=== PATIENT | female | born 1990 | race Caucasian/White ===

== ENCOUNTER → 2018-05-23 | Outpatient (CLI) | payer BC ==
[~2018-05-23] MED LIST: BCPILLS PO
== END | disposition home or self-care (01) ==
LOC: C.LAB 10:23
PROVIDERS: ATTEND Family Medicine
DX: R07.9 Chest pain, unspecified (principal)

== ENCOUNTER 2019-02-06 18:57 | Inpatient (IN) ==
[2019-02-06] MEDS ORDERED: OXYTOCIN 30 UNITS/500 ML BAG IV PRN (20:00)
[2019-02-06] MEDS ORDERED: LACTATED RINGER'S 1,000 ML IV PRN (20:00)
[2019-02-06 21:24] LABS: Hematocrit (blood only) 39.8 % (37-47); Mean Corpuscular Volume 86.3 fL (80-100); Mean Platelet Volume 12.5 fL (7.4-10.4); Platelet Count 155 K/uL (130-400); RDW Coefficient of Variation 13.7 % (11.5-14.5); RDW Standard Deviation 42.6 fL (36.4-46.3); Red Blood Count 4.61 M/uL (4.2-5.4); White Blood Count 15.22 K/uL (4.8-10.8)
[2019-02-06 21:39] LABS: Mean Corpuscular Hgb Conc 35.2 g/dL (32-36)
[2019-02-07] MEDS: LACTATED RINGER'S 1,000 ML IV SCH ×2 (02:44→03:51)
[2019-02-07] MEDS ORDERED: BISACODYL 10 MG SUPP PR PRN (05:46)
[2019-02-07] MEDS ORDERED: BENZOCAINE 20% AER SPR 82.5 GM CAN EXT PRN (05:46)
[2019-02-07] MEDS ORDERED: OXYTOCIN 30 UNITS/500 ML BAG IV PRN (05:46)
[2019-02-07] MEDS ORDERED: ACETAMINOPHEN 325 MG TAB PO PRN (05:46)
[2019-02-07] MEDS ORDERED: SUPERCREAM 0.870% 15 GM JAR EXT PRN (05:46)
[2019-02-07] MEDS ORDERED: HYDROCORTISONE ACETATE 25 MG SUPP PR PRN (05:46)
[2019-02-07] MEDS ORDERED: ACETAMINOPHEN W/CODEINE #3 1 TAB PO PRN (05:46)
[2019-02-07] MEDS ORDERED: DIPHTHERIA/TETANUS/PERTUSSIS 0.5 ML SYR/VIAL IM ONE (05:46)
[2019-02-07] MEDS ORDERED: OXYCODONE/ACETAMINOPHEN 5mg/325mg TAB PO PRN (05:46)
[2019-02-07] MEDS: IBUPROFEN 600 MG TAB PO PRN ×3 (06:01→18:52)
--- NOTE | 2019-02-07 07:29 | Delivery Summary ---
DATE OF OPERATION: 02/07/2019 DELIVERY NOTE The patient is 1, para 1. Blood type is B negative, group B strep negative, EDC 02/05/2019, was admitted in active labor. On admission, she was about 4+ cm dilated. She had an unstimulated unmedicated labor. She went to full dilatation. It took her about a little over 2 hours to push out a live male via direct occiput anterior position over an intact perineum. Infant was suctioned through the mouth and the nose. Shoulders were delivered without difficulty. Terminal meconium was noted. Cord was clamped, cut, and then he was taken over to be given some mask oxygen. With IV Pitocin running, the placenta was removed intact, it had meconium staining, was sent for exam. Inspection of the perineum revealed a second-degree laceration. The perineal area was infiltrated with local. I used a heavy Vicryl to approximate the vaginal mucosa out and to beyond the hymenal ring. I then used a deep suture of heavy Vicryl to approximate the bulbocavernosus muscle, another deep suture to bolster the rectal sphincter capsule, 2 sutures to approximate the perineal body, and then I did a running subcuticular suture to approximate the perineal skin edges. Following this, vag exam including rectovaginal examination revealed no hematoma formation or sponges in the vagina. Estimated blood loss was 200 mL. Estimated Apgars were 3 and 8 respectively. MTDD
[2019-02-07] MEDS: DOCUSATE SODIUM 100 MG CAP PO SCH ×2 (08:21→21:12)
[2019-02-07] MEDS: PRENATAL VITAMIN 1 TAB PO SCH (08:21)
[2019-02-07] MEDS: FERROUS SULFATE 325 MG TAB PO SCH (08:21)
[2019-02-08] MEDS: IBUPROFEN 600 MG TAB PO PRN ×3 (04:48→20:56)
[2019-02-08 06:28] LABS: Hematocrit (blood only) 31.3 % (37-47); Hemoglobin 10.6 g/dL (12.0-16.0); Mean Corpuscular Hgb Conc 33.9 g/dL (32-36); Mean Corpuscular Volume 88.7 fL (80-100); Mean Platelet Volume 11.5 fL (7.4-10.4); Platelet Count 111 K/uL (130-400); RDW Coefficient of Variation 14.1 % (11.5-14.5); RDW Standard Deviation 46.2 fL (36.4-46.3); Red Blood Count 3.53 M/uL (4.2-5.4); White Blood Count 11.77 K/uL (4.8-10.8)
--- NOTE | 2019-02-08 07:48 | Obstetrical Progress Note ---
Date of Service February 08, 2019 Assessment & Plan (1) normal course: PPD #1 pt doing well anticipate disch tomorrow Subjective Ambulation: ambulating normally Voiding: no voiding problems Passing Gas:: Yes Diet Tolerance:: regular diet Lochia:: Small Feeding Type:: breast feeding Review of Systems All systems reviewed & are unremarkable except as noted in HPI & below Physical Exam Vital Signs (Past 24 Hours) Last Vital Signs Temp 36.4 C L 02/08/19 04:30 Pulse 90 02/08/19 04:30 Resp 16 02/08/19 04:30 BP 124/87 02/08/19 04:30 Pulse Ox 99 02/08/19 04:30 Constitutional WD/WN, vitals as above well developed and well nourished Eyes PERRL, conjunctivae normal, anicteric sclerae Neck trachea midline, no thyromegaly Respiratory normal respiratory effort, lungs clear to auscultation Auscultation: no crackles, no rales and no wheezes Cardiovascular RRR, no murmur, no edema Gastrointestinal (Abdomen) normal bowel sounds, soft, nontender, no hepatosplenomegaly Uterus is below umbilicus Musculoskeletal no cyanosis or clubbing, extremities motor strength 5/5 Skin no rashes, warm and dry Neurologic patellar DTR's 2+ bilat, sensation intact Psychiatric A+Ox3, euthymic affect Genitourinary normal external appearance
[2019-02-08] MEDS: DOCUSATE SODIUM 100 MG CAP PO SCH ×2 (08:35→20:56)
[2019-02-08] MEDS: FERROUS SULFATE 325 MG TAB PO SCH (08:36)
[2019-02-08] MEDS: PRENATAL VITAMIN 1 TAB PO SCH (08:36)
[2019-02-08] MEDS ORDERED: BISACODYL 5 MG TABEC PO SCH (20:00)
[2019-02-09 07:06] LABS: Hematocrit (blood only) 30.5 % (37-47); Hemoglobin 10.5 g/dL (12.0-16.0)
--- NOTE | 2019-02-09 09:22 | Obstetrical Progress Note ---
Date of Service February 09, 2019 Assessment & Plan (1) normal course: pt doing well 'no complaints disch home with instructions Subjective Ambulation: ambulating normally Voiding: no voiding problems Passing Gas:: Yes Diet Tolerance:: regular diet Lochia:: Small Feeding Type:: breast feeding Review of Systems All systems reviewed & are unremarkable except as noted in HPI & below Physical Exam Vital Signs (Past 24 Hours) Last Vital Signs Temp 36.8 C 02/09/19 00:25 Pulse 76 02/09/19 00:25 Resp 18 02/09/19 00:25 BP 112/72 02/09/19 00:25 Pulse Ox 97 02/09/19 00:25 Constitutional WD/WN, vitals as above well developed and well nourished Eyes PERRL, conjunctivae normal, anicteric sclerae Neck trachea midline, no thyromegaly Respiratory normal respiratory effort, lungs clear to auscultation Auscultation: no crackles, no rales and no wheezes Cardiovascular RRR, no murmur, no edema Gastrointestinal (Abdomen) normal bowel sounds, soft, nontender, no hepatosplenomegaly Uterus is below umbilicus Musculoskeletal no cyanosis or clubbing, extremities motor strength 5/5 Skin no rashes, warm and dry Neurologic patellar DTR's 2+ bilat, sensation intact Psychiatric A+Ox3, euthymic affect Genitourinary normal external appearance
== END 2019-02-09 13:20 | disposition home or self-care (01) | DRG 807 ==
LOC: OPB 18:57 → 4S1 18:58 → 4S2 02-07 09:55

== ENCOUNTER 2022-10-08 07:18 | Inpatient (IN) ==
[2022-10-08] MEDS ORDERED: LACTATED RINGER'S 1,000 ML IV PRN (07:30)
[2022-10-08] MEDS ORDERED: LIDOCAINE 1% LOCAL 20 ML VIAL INFIL PRN (07:30)
--- NOTE | 2022-10-08 07:42 | History & Physical Report ---
Date of Service October 08, 2022 Assessment & Plan (1) Active labor at term: Plan: 32-year-old -0-0-1 at 40 weeks and 2 days of gestation presenting with regular contractions, SROM, active labor, Vital signs stable afebrile, No medical problems, heart rate reassuring, GBS negative, Plans unmedicated labor with her [employer] L[employer], declines epidural for pain, Plan to admit, monitor, labs, IV fluids, All questions were answered. (2) Spontaneous rupture of amniotic membranes: Admission and Anticipated Discharge Date Admission Date: October 08, 2022 History of Present Illness Primary Care Provider: Alida Carrasco DO Patient is a 32-year-old -0-0-1 at 40 weeks and 3 days of gestation who woke up this morning with contractions around 3:30 AM they have been getting regular and more painful. She SROM on the way here at 7:10 AM and have been having contractions every 2 minutes. She has a [employer] L[employer]arian coming and and plans to have unmedicated labor, declines epidural. She denies vaginal bleeding. She reports good movements. Her has been uncomplicated, GBS negative, Denies any medical problems. Allergies Allergy/AdvReac Type Severity Reaction Status Date / Time benzoyl peroxide Allergy Severe RASH Verified 02/07/19 00:17 Home Medications Medication Instructions Recorded Confirmed Type vits no.124-ferrous fum 1 tab PO DAILY 02/06/19 02/06/19 History 27 mg iron-folic acid 800 mcg tablet ( Vitamin) docusate sodium 100 mg capsule 100 mg PO BID #60 caps 02/09/19 Rx ferrous sulfate 325 mg (65 mg 325 mg PO QAM #30 tabs 02/09/19 Rx iron) tablet,delayed release ibuprofen 600 mg tablet 600 mg PO Q4H #30 tabs 02/09/19 Rx Patient History Medical History Elbow fracture, left Kidney stone Surgical History Hx of LASIK [place] teeth removed Social History Smoking Status: Never smoker Second Hand Exposure: No; Hx Alcohol Use: No Hx Substance Use: No Preferred Language: Qatari Communication Ability: Effective Visual Impairment: No Limitations Hearing Ability: Normal Plumbing Contractor Required: No Beliefs That Will Affect Care: None marital status: Current Living Situation: Spouse current occupational status: employed 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 Review of Systems as per Subjective / HPI Physical Exam Constitutional: WD/WN, vitals as above Gastrointestinal (Abdomen): normal bowel sounds, soft, nontender, no hepatosplenomegaly (Gravid) Genitourinary: normal external appearance OB Exam Abdomen: + vertex Manual OB Exam: + cervical dilation 4 cm, + cervical effacement 70% and + station -2 OB Exam Monitor Tracing: + external uterine monitor used and + category I Results & Data ([facility]) Vital Signs (Past 12 Hours) Vital Signs Pulse BP 10/08/22 07:29 95 H 110/74
[2022-10-08 07:58] LABS: Hematocrit (blood only) 39.2 % (34.1-44.9); Mean Corpuscular Hemoglobin 30.5 pg (25.0-34.0); Mean Corpuscular Hgb Conc 35.7 g/dL (32.0-36.0); Mean Corpuscular Volume 85.4 fL (80.0-100.0); Mean Platelet Volume 11.1 fL (9.4-12.3); Platelet Count 173 K/uL (130-400); RDW Coefficient of Variation 13.6 % (11.5-14.5); RDW Standard Deviation 42.2 fL (36.4-46.3); Red Blood Count 4.59 M/uL (3.93-5.22); White Blood Count 13.24 K/ul (4.8-10.8)
--- NOTE | 2022-10-08 08:48 | Obstetrical Progress Note ---
Date of Service October 08, 2022 Assessment & Plan Admission and Anticipated Discharge Date Admission Date: October 08, 2022 Subjective Patient wanted to take shower to help with pain Back to bed, has difficulty with lying down, wants to sit up FHR 130's with good variability, unable to monitor FHR continuously due to maternal discomfort VE; 7/ 80%/-1 Ctxs q 1-2 min Continue to monitor closely Results & Data ([facility]) Vital Signs (Past 12 Hours) Vital Signs Temp Pulse Resp BP Pulse Ox 10/08/22 08:44 100 H 98 10/08/22 07:53 22 10/08/22 07:53 22 10/08/22 07:29 95 H 110/74 10/08/22 07:34 36.5 C 18
[2022-10-08] MEDS ORDERED: ceFAZolin 2000MG 2,000 MG/15 ML SYR IV STA (09:12)
[2022-10-08] MEDS: OXYTOCIN 30 UNITS/500 ML BAG IV PRN ×2 (09:18→10:16)
[2022-10-08] MEDS ORDERED: DIPHTHERIA/TETANUS/PERTUSSIS 0.5 ML SYR/VIAL IM ONE (09:42)
[2022-10-08] MEDS ORDERED: ACETAMINOPHEN 325 MG TAB PO PRN (09:42)
[2022-10-08] MEDS ORDERED: HYDROCORTISONE ACETATE 25 MG SUPP PR PRN (09:42)
[2022-10-08] MEDS ORDERED: MEASLES, MUMPS & RUBELLA VIRUS VIAL SQ ONE (09:42)
[2022-10-08] MEDS ORDERED: bisacodyL 10 MG SUPP PR PRN (09:42)
[2022-10-08] MEDS ORDERED: oxyCODONE/ACETAMINOPHEN 5mg/325mg TAB PO PRN (09:42)
[2022-10-08] MEDS ORDERED: OXYTOCIN 30 UNITS/500 ML BAG IV PRN (09:42)
[2022-10-08] MEDS ORDERED: BENZOCAINE 20% AER SPR 82.5 GM CAN EXT PRN (09:42)
--- NOTE | 2022-10-08 10:10 | Delivery Summary ---
Vaginal Delivery Summary Date of Service October 08, 2022 Vaginal Delivery Summary Patient labored by herself and did not get anything for pain per her choice. She was getting very painful and and feeling pressure. Her cervix was checked to be 9 cm and head was at +1 station. heart rate had decelerations and we were unable to monitor the baby continues to do to patient discomfort and unable to stay in 1 position. Patient wanted to push and with 1 push cervix became 10 cm and had came down to +2. She push through few contractions and brought down the head to +3 station. heart rate had decelerations. Head was at LOP position with a partial internal rotation. I emptied the bladder with straight cath and then applied a Kiwi vacuum at the vertex 1 cm front of posterior fontanelle. With the patient pushing and Kiwii vacuum was pulled once and head was at that point. Then the head was delivered with next push. Anterior/left shoulder was found to be stuck behind pubic bone indicating shoulder dystocia. The team was notified and the bed was lowered down. With Cindy maneuver and suprapubic pushing applied by Dr. Elkins, I was able to deliver right/posterior shoulder and arm without difficulty. Then the anterior shoulder was delivered with minimal traction. Baby was handed to the mother where the cord was clamped x2 and cut and baby was handed to the waiting pediatric team with Dr. Matos. The time between the delivery of the head and the whole body was less than a minute. Then the vagina and perineum were checked for lacerations. There was a second- degree midline perineal laceration. Rectal exam was done and confirmed to have good sphincter tone. Perineal muscles around the sphincter were held with Allis clamps and repaired with 2-0 Vicryl with [id number] stitches x2 to support external sphincter of anus. Good sphincter tone was noted and no sutures were felt. The gloves were changed and rest of the perineal body muscles were approximated with 2-0 Vicryl with running sutures. Then the vagina mucosa and skin were c losed with 2-0 Vicryl in a running and subcuticular sutures. Excellent hemostasis achieved. The placenta was found to be in the vagina, delivered spontaneously as intact and complete. Uterus was explored and upper segment was contracted and firm and the lower segment was cleared of all clots and debris's. EBL was 300 mL. Mom and baby tolerated procedure well. The sponge needle instrument count was correct x2. The baby was a viable male , apgars 8/9 and weight is pending. No complications happened other than moderate shoulder dystocia. I was present during whole procedure.
[2022-10-08] MEDS: IBUPROFEN 600 MG TAB PO PRN ×3 (10:16→20:38)
[2022-10-08] MEDS: DOCUSATE SODIUM 100 MG CAP PO SCH (20:33)
[2022-10-09] MEDS: IBUPROFEN 600 MG TAB PO PRN ×2 (03:39→08:25)
--- NOTE | 2022-10-09 07:06 | Obstetrical Progress Note ---
Date of Service October 09, 2022 Assessment & Plan (1) Normal course: PPD #1 Pt doing well d/c home tomorrow cbc pending Results & Data ([facility]) Vital Signs (Past 12 Hours) Vital Signs Temp Pulse Resp BP Pulse Ox O2 Del Method 10/09/22 02:59 36.6 C 83 18 105/68 98 Room Air 10/08/22 23:06 36.4 C L 75 18 100/63 97 Room Air 10/08/22 20:00 36.6 C 82 16 99/60 L 98 Room Air
--- NOTE | 2022-10-09 07:07 | Obstetrical Progress Note ---
Date of Service October 09, 2022 Assessment & Plan (1) Normal course: PPD #1 pt doing well No complaints d/c home tomorrow Subjective Ambulation: ambulating normally Voiding: no voiding problems Passing Gas:: Yes Diet Tolerance:: regular diet Lochia:: Small Feeding Type:: breast feeding Review of Systems All systems reviewed & are unremarkable except as noted in HPI & below Physical Exam Constitutional WD/WN, vitals as above well developed and well nourished Eyes PERRL, conjunctivae normal, anicteric sclerae Neck trachea midline, no thyromegaly Respiratory normal respiratory effort, lungs clear to auscultation Auscultation: no crackles, no rales and no wheezes Cardiovascular RRR, no murmur, no edema Gastrointestinal (Abdomen) normal bowel sounds, soft, nontender, no hepatosplenomegaly Uterus is below umbilicus Musculoskeletal no cyanosis or clubbing, extremities motor strength 5/5 Skin no rashes, warm and dry Neurologic patellar DTR's 2+ bilat, sensation intact Psychiatric A+Ox3, euthymic affect Genitourinary normal external appearance Results & Data ([facility]) Vital Signs (Past 12 Hours) Vital Signs Temp Pulse Resp BP Pulse Ox O2 Del Method 10/09/22 02:59 36.6 C 83 18 105/68 98 Room Air 10/08/22 23:06 36.4 C L 75 18 100/63 97 Room Air 10/08/22 20:00 36.6 C 82 16 99/60 L 98 Room Air
[2022-10-09] MEDS ORDERED: PRENATAL VITAMIN 1 TAB PO SCH (08:00)
[2022-10-09] MEDS ORDERED: FERROUS SULFATE 325 MG TAB PO SCH (08:00)
[2022-10-09] MEDS: DOCUSATE SODIUM 100 MG CAP PO SCH (08:25)
[2022-10-09 08:34] LABS: Hemoglobin 11.3 g/dl (12.0-16.0); Mean Corpuscular Hemoglobin 30.9 pg (25.0-34.0); Mean Corpuscular Hgb Conc 34.2 g/dL (32.0-36.0); Mean Corpuscular Volume 90.2 fL (80.0-100.0); Mean Platelet Volume 11.3 fL (9.4-12.3); Platelet Count 141 K/uL (130-400); RDW Coefficient of Variation 13.9 % (11.5-14.5); RDW Standard Deviation 45.5 fL (36.4-46.3); Red Blood Count 3.66 M/uL (3.93-5.22); White Blood Count 9.68 K/ul (4.8-10.8)
[2022-10-09] MEDS ORDERED: bisacodyL 5 MG TABEC PO SCH (20:00)
== END 2022-10-09 14:25 | disposition home or self-care (01) | DRG 807 ==
LOC: OPB 07:18 → 4S1 07:19 → 4E2 13:00

== ENCOUNTER 2024-07-08 18:48 | Inpatient (IN) ==
[2024-07-08] MEDS: LACTATED RINGER'S 1,000 ML IV SCH (20:00)
[2024-07-08] MEDS: ACETAMINOPHEN 500 MG TAB PO SCH (20:15)
[2024-07-08 20:24] LABS: Hematocrit (blood only) 37.7 % (37.0-47.0); Mean Corpuscular Hgb Conc 34.5 g/dL (32.0-36.0); Mean Corpuscular Volume 87.1 fL (80.0-100.0); Mean Platelet Volume 11.9 fL (9.4-12.4); Platelet Count 137 K/uL (130-400); RDW Coefficient of Variation 13.4 % (11.5-14.5); RDW Standard Deviation 41.9 fL (36.4-46.3); Red Blood Count 4.33 M/uL (4.20-5.40); White Blood Count 11.07 K/ul (4.8-10.8)
[2024-07-08] MEDS: CITRIC ACID/SODIUM CITRATE 15 ML UDC PO SCH (20:27)
[2024-07-08] MEDS: AZITHROMYCIN 500 MG in DEXTROSE 5% 250 ML IV SCH (20:27)
--- NOTE | 2024-07-08 20:31 | History & Physical Report ---
Date of Service July 08, 2024 Assessment & Plan (1) Transverse lie: Plan: patient is a 34-year-old -0-0-2 at 38 weeks and 4 days of gestation presented today in active labor with contractions, history of shoulder dystocia plan to her primary for next week, found to be transferred live with footh on presenting part, vital signs stable afebrile, heart rate reassuring, Plan to admit, monitor, labs, prepare for primary , patient understand the risks and benefits and signed an informed consent. All questions were answered. (2) History of shoulder dystocia in prior : Admission and Anticipated Discharge Date Admission Date: July 08, 2024 History of Present Illness Primary Care Provider: Leopoldo Johnson MD Patient is a 34-year-old -0-0-2 at 38 weeks and 4 days of gestation who has been feeling contractions since this afternoon. They got more closer and painful after 6 PM. She has been feeling them every 6 to send 7 minutes and pain is 7-8 out of 10. she denies leakage of fluid or vaginal bleeding. She reports good movements. She was originally scheduled for primary on July 15 for history of her shoulder dysplasia in 2021. I delivered her baby with Cindy maneuver, Suprep blood pressure and delivery of posterior arm within a minute with no complications. Baby has been doing well. After discussion in the office she decided to schedule primary to prevent another shoulder dystocia. vaginal exam reveals presenting part is most likely a foot. bedside ultrasound confirmed transverse lie with head on the right side, face down, back up and extremities in the pelvis. she is in active labor and is 5 cm dilated.. Patient understand the findings and risks and benefits and signed informed consent for a . Orders were placed to proceed with primary . her has been otherwise uncomplicated. She denies any medical problems nor surgeries. She does not take any medications other than vitamins. Allergies Allergy/AdvReac Type Severity Reaction Status Date / Time benzoyl peroxide Allergy Severe RASH Verified 07/03/24 15:31 Home Medications Medication Instructions Recorded Confirmed Type vits no.124-ferrous fum 1 tab PO QAM 02/06/19 07/03/24 History 27 mg iron-folic acid 800 mcg tablet ( Vitamin) Patient History Medical History Thyroid nodule "Found by OB 2023 - followed up with my PCP - Yearly monitoring with ultrasound" Kidney stone hx - no surgical intervention Elbow fracture, left no surgery - childhood Surgical History Hx of LASIK [place] teeth removed Social History Smoking Status: Never smoker Second Hand Exposure: No; Do You Dip or Chew Tobacco: No; Hx Alcohol Use: No Hx Substance Use: No Preferred Language: Marshallese Communication Ability: Effective Visual Impairment: No Limitations Hearing Ability: Normal Drug Department Worker Required: No Beliefs That Will Affect Care: None marital status: Current Living Situation: Spouse and Family current occupational status: employed 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 Other Information That Helps Us Care for You: No Feels Safe at Home: Yes Safety Concerns: Feels Safe At This Time Seatbelt Use: always Assistive Devices: None Review of Systems All systems reviewed & are unremarkable except as noted in HPI & below and All systems reviewed & are unremarkable except as noted in Subjective as per Subjective / HPI Physical Exam Constitutional: WD/WN, vitals as above well developed, well nourished and + acute distress ( with contractions only, comfortable and smiling between contra ctions) Gastrointestinal (Abdomen): normal bowel sounds, soft, nontender, no hepatosplenomegaly ( gravid) Genitourinary: normal external appearance OB Exam Abdomen: + transverse Manual OB Exam: + cervical dilation 5 cm, + cervical effacement 50% and + station high ( footh) OB Exam Monitor Tracing: + external uterine monitor used and + category I Results & Data Vital Signs (Past 12 Hours) Vital Signs Temp Pulse Resp BP 07/08/24 19:21 102 H 118/79 07/08/24 19:04 36.9 C 18 07/08/24 19:00 102 H 141/92 H (1) Transverse lie Fetus number: single or unspecified fetus Qualified Code(s): O32.2XX0 - Maternal care for transverse and oblique lie, not applicable or unspecified
[2024-07-08] MEDS ORDERED: diphenhydrAMINE 50 MG/ML VIAL IV PRN (20:37)
[2024-07-08] MEDS ORDERED: NALOXONE HCL 0.08 MG in SYRINGE 1.8 ML IV PRN (20:37)
[2024-07-08] MEDS ORDERED: ePHEDrine sulfate 50 MG/ML AMP IV PRN (20:37)
[2024-07-08] MEDS ORDERED: NALBUPHINE HCL INJ 10 MG/ML AMP IV PRN (20:37)
[2024-07-08] MEDS ORDERED: MEPERIDINE HCL 25 MG/ML CARP/VIAL IV PRN (20:37)
[2024-07-08] MEDS ORDERED: HYDROmorphone INJ 0.5 MG/0.5 ML SYR IV PRN (20:37)
[2024-07-08] MEDS ORDERED: LACTATED RINGER'S 500 ML IV PRN (20:37)
[2024-07-08] MEDS ORDERED: NALOXONE HCL 1 MG in SODIUM CHLORIDE 0.9% 1,000 ML IV PRN (20:37)
[2024-07-08] MEDS ORDERED: NALOXONE HCL 0.4 MG/1 ML VIAL/CARP IV PRN (20:37)
[2024-07-08] MEDS ORDERED: MoRPHine SULFATE 2 MG/ML CARP IV PRN (20:37)
[2024-07-08] MEDS ORDERED: ONDANSETRON INJ 2 MG/ML 2 ML VIAL IV PRN (20:37)
[2024-07-08] MEDS: ceFAZolin 2000MG 2,000 MG/15 ML SYR IV SCH (20:44)
[2024-07-08] MEDS ORDERED: NO NARCOTICS OR SEDATIVES SCH (20:45)
[2024-07-08] MEDS ORDERED: DC INTRASPINAL MORPHINE SCH (20:45)
[2024-07-08] MEDS ORDERED: MoRPHine SULFATE PF 1 MG/ML 10 ML AMP/VIAL ONE (20:47)
[2024-07-08] MEDS ORDERED: PHENYLEPHRINE HCL 25 MG/250 ML NSS IV ONE (20:48)
[2024-07-08] MEDS ORDERED: OXYTOCIN 10 UNITS/ML VIAL ONE ×4 (20:48→21:51)
[2024-07-08] MEDS ORDERED: fentaNYL citrate PF 100 MCG/2 ML VIAL ONE ×2 (21:30→21:39)
[2024-07-08] MEDS ORDERED: ONDANSETRON INJ 2 MG/ML 2 ML VIAL ONE (22:00)
[2024-07-08] MEDS ORDERED: BENZOCAINE 20% SPRY 85 APPLN/85 GM CAN EXT PRN (22:07)
[2024-07-08] MEDS ORDERED: HYDROCORTISONE ACETATE 25 MG SUPP PR PRN (22:07)
[2024-07-08] MEDS ORDERED: MAGNESIUM HYDROXIDE SUSP 30 ML UDC PO PRN (22:07)
[2024-07-08] MEDS ORDERED: SENNA 8.6 MG TAB PO PRN (22:07)
[2024-07-08] MEDS ORDERED: CALCIUM CARBONATE 500 MG CHEWABLE TAB PO PRN (22:07)
--- NOTE | 2024-07-08 22:23 | Operative Report ---
Post Operative Report Pre & Post Diagnosis Operation Date: 07/08/24 20:05 Pre-Op Diagnosis: Transverse lie, back up, with foot presentation Active labor History of Shoulder Dystocia during Last Delivery in 2021 Post-Op Diagnosis: Transverse lie, back up, with foot presentation Active labor History of Shoulder Dystocia during Last Delivery in 2021 I identified the patient and participated in the time-out.: Yes Procedure Operation Date: 07/08/24 20:05 Actual Procedures p Primary Section. live male child at 2116 - Jennifer Reilly MD Surgeon Jennifer Reilly MD Repairer [employer] Nithya Azevedo RN Quantitative Blood Loss (QBL) 330 ML Findings Consistent with Post-Op Diagnosis Baby Was a Viable Male Delivered at 20 1:17 PM Apgars 8/9 Weight Was 8 Pounds 3 Ounces, 3720 gr. Baby Was in Transverse Lie, Back up Position, Head on the Right of the Uterus, Lower Back and Buttocks on the Left Lower Quadrant of the Uterus and Feet in the Pelvis were presenting parts. Maternal Findings, Normal Uterus Fallopian Tubes and Ovaries Specimens Placenta and Cord Drains Alaniz Catheter Drained 200 mL of Urine Anesthesia Type Spinal Complications none Disposition Accompanied Patient To Recovery: Yes Indications Patient Is a 34-year-old female -0-0-2 at 38 weeks and 4 days of gestation who is presenting in active labor with transverse lie, backup, feet as presenting parts. Patient has a history of shoulder dystocia during her last delivery in 2021 and she was originally scheduled for a primary on July 15. She presented today with contractions in active labor decision was made to proceed with due to above findings. Description of Procedure Patient was taken to operating room where a spinal anesthesia was given without difficulty. She was placed in dorsal supine position with a leftward tilt. She was prepared and draped in usual sterile fashion. A financial skin incision was made and carried through to the underlying layer of fascia with the Bovie. Fascia was incised in the midline and incision was extended laterally with the help of Phipps scissors. Then the upper aspect of the fascial incision was grasped with 2 Leslie clamps elevated the underlying rectus muscles were dissected off sharply with Phipps scissors. Same thing was done on the lower incision. Then the muscles were in the midline, peritoneum was identified grasped with 2 pickups and entered sharply with Metzenbaum scissors. Peritoneal incision was extended superior and inferiorly with good visualization of the bladder. The bladder blade was inserted. Vesicouterine peritoneum was identified, grasped with pickups and entered sharply with Metzenbaum scissors, bladder flap was created digitally and bladder blade was reinserted. Uterus was incised in transverse fashion, incision was extended laterally with our bandage scissors, membranes were ruptured and clear fluid was obtained. Baby's feet were delivered , followed by legs, buttocks and arms in flexion position and then head without difficulty. There was a nuchal cordx1, reduced. Mouth and nose were suctioned there was dried on the field . The cord was clamped times and cut at 1 minute delay and then the infant was handed off to the pediatric team. Then the placenta was delivered manually as intact and complete. Uterus was externalized and cleared of all clots and debris's. Uterine incision was repaired with 0 Vicryl in a running locked fashion, second umbricating layer was placed with the same suture in running locked fashion. Excellent hemostasis achieved. Cul-de-sac and the pelvis was irrigated with warm normal saline and suctioned. Incision was checked of hemostatic again. Uterus was returned to the abdomen, parietal peritoneum was reapproximated with 3-0 Vicryl in a running fashion and the muscles were reapproximated in the same suture in a running fashion. All of the fascia and rectus muscles were hemostatic. Rectus fascia was reapproximated with 0 Vicryl in running fashion. Subcuticular fat tissue was brought together with 2-0 Vicryl in a running fashion, skin was closed with 4-0 Monocryl in a subcuticular cuticular fashion. The mom and baby tolerated procedure well. Sponge needle instrument count was correct x3. No complications happened, I was present during whole procedure. My blood donor unit assistant was needed for retraction, hemostasis and aid during delivery of . I attest to the content of the Intraoperative Record and any orders documented therein. Any exceptions are noted below.
[2024-07-08] MEDS: OXYTOCIN 20 UNITS/LR 1,002 ML IV SCH (23:31)
[2024-07-08] MEDS ORDERED: Nursing to Pharmacy Communication SCH (23:45)
[2024-07-09] MEDS: ACETAMINOPHEN 325 MG TAB PO SCH (00:21)
[2024-07-09] MEDS: IBUPROFEN 600 MG TAB PO SCH (00:21)
--- NOTE | 2024-07-09 01:06 | Obstetrical Progress Note ---
Date of Service July 09, 2024 Assessment & Plan Admission and Anticipated Discharge Date Admission Date: July 08, 2024 Subjective Postop check Patient is seen and examined Feels well, no complaints Pain is under control with meds No CP/ SOB/ Dizziness/ N&V/ VB/ Leg pain Not OOB yet Tolerating clears Explained about the surgery and findings Breast feeding her baby. Vital Signs Height Weight Body Mass Index Blood Pressure Temperature Temperature Source Pulse Rate 5 ft 9 in 78.925 kg 25.7 106/60 36.9 C Oral 80 07/08/24 19:04 07/08/24 19:04 07/08/24 19:04 07/09/24 00:14 07/08/24 22:15 07/08/24 22:15 07/09/24 00:18 Respiratory Rate Pulse Oximetry 18 98 07/09/24 00:40 07/09/24 00:18 UOP 250 ml since surgery, dark yellow,no blood PE: General: Alert, orientedx3, NAD CVS: S1S2 RRR Lungs: CTAB Abd: soft, NT, ND, BS+, Dressing C/D/I, fundus firm below U VB minimal Ext: NT, no edema, SCD's on AP: 34 yo female s/p Primary C section , pod#1 VSS Afebrile doing well Continue to routine postop care Encourage PO intake, ambulate when able D/C z[place] in am Results & Data Vital Signs (Past 12 Hours) Vital Signs Temp Pulse Resp BP Pulse Ox 07/09/24 00:40 18 07/09/24 00:18 80 98 07/09/24 00:14 82 106/60 07/09/24 00:13 82 97 07/09/24 00:08 80 97 07/09/24 00:04 77 102/61 07/09/24 00:03 82 96 07/08/24 23:58 88 97 07/08/24 23:54 96 H 97/58 L 07/08/24 23:53 94 H 96 07/08/24 23:48 84 96 07/08/24 23:45 18 07/08/24 23:44 81 99/59 L 07/08/24 23:43 91 H 96 07/08/24 23:38 88 96 07/08/24 23:35 88 105/69 07/08/24 23:33 90 96 07/08/24 23:28 90 95 07/08/24 23:24 90 92/74 L 07/08/24 23:23 91 H 96 07/08/24 23:18 85 96 07/08/24 23:17 88 106/73 07/08/24 23:15 18 07/08/24 23:15 18 07/08/24 23:13 85 96 07/08/24 23:08 88 96 07/08/24 23:04 85 108/57 L 07/08/24 23:03 80 96 07/08/24 22:58 86 96 07/08/24 22:55 18 07/08/24 22:54 81 112/58 L 07/08/24 22:53 84 96 07/08/24 22:48 88 96 07/08/24 22:45 18 07/08/24 22:44 93 H 126/60 07/08/24 22:43 96 H 97 07/08/24 22:38 86 97 07/08/24 22:35 18 07/08/24 22:34 93 H 124/59 L 07/08/24 22:33 91 H 98 07/08/24 22:28 90 98 07/08/24 22:25 18 07/08/24 22:25 87 132/61 07/08/24 22:23 90 99 07/08/24 22:21 92 H 90 07/08/24 22:18 87 100 07/08/24 22:15 36.9 C 07/08/24 22:13 85 105/72 100 07/08/24 19:21 102 H 118/79 07/08/24 19:04 36.9 C 07/08/24 19:00 102 H 141/92 H
--- NOTE | 2024-07-09 01:17 | Anesthesiology Progress Note ---
Date of Service July 09, 2024 Anesthesia Post Procedure Vital Signs Vital Signs: Temp Pulse Pulse Resp BP BP Pulse Ox 07/09/24 01:09 18 96 07/09/24 00:40 18 07/09/24 00:30 18 97 07/09/24 00:30 36.8 C 81 18 105/61 97 07/09/24 00:18 80 98 07/09/24 00:14 82 106/60 07/09/24 00:13 82 97 07/09/24 00:08 80 97 07/09/24 00:04 77 102/61 07/09/24 00:03 82 96 07/08/24 23:58 88 97 07/08/24 23:54 96 H 97/58 L 07/08/24 23:53 94 H 96 07/08/24 23:48 84 96 07/08/24 23:45 18 07/08/24 23:44 81 99/59 L 07/08/24 23:43 91 H 96 07/08/24 23:38 88 96 07/08/24 23:35 88 105/69 07/08/24 23:33 90 96 07/08/24 23:28 90 95 07/08/24 23:24 90 92/74 L 07/08/24 23:23 91 H 96 07/08/24 23:18 85 96 07/08/24 23:17 88 106/73 07/08/24 23:15 18 07/08/24 23:15 18 07/08/24 23:13 85 96 07/08/24 23:08 88 96 07/08/24 23:04 85 108/57 L 07/08/24 23:03 80 96 07/08/24 22:58 86 96 07/08/24 22:55 18 07/08/24 22:54 81 112/58 L 07/08/24 22:53 84 96 07/08/24 22:48 88 96 07/08/24 22:45 18 07/08/24 22:44 93 H 126/60 07/08/24 22:43 96 H 97 07/08/24 22:38 86 97 07/08/24 22:35 18 07/08/24 22:34 93 H 124/59 L 07/08/24 22:33 91 H 98 07/08/24 22:28 90 98 07/08/24 22:25 18 07/08/24 22:25 87 132/61 07/08/24 22:23 90 99 07/08/24 22:21 92 H 90 07/08/24 22:18 87 100 07/08/24 22:15 36.9 C 18 07/08/24 22:13 85 105/72 100 07/08/24 19:21 102 H 118/79 07/08/24 19:04 36.9 C 18 07/08/24 19:00 102 H 141/92 H O2 Del Method 07/09/24 01:09 07/09/24 00:40 07/09/24 00:30 07/09/24 00:30 Room Air 07/09/24 00:18 07/09/24 00:14 07/09/24 00:13 07/09/24 00:08 07/09/24 00:04 07/09/24 00:03 07/08/24 23:58 07/08/24 23:54 07/08/24 23:53 07/08/24 23:48 07/08/24 23:45 07/08/24 23:44 07/08/24 23:43 07/08/24 23:38 07/08/24 23:35 07/08/24 23:33 07/08/24 23:28 07/08/24 23:24 07/08/24 23:23 07/08/24 23:18 07/08/24 23:17 07/08/24 23:15 07/08/24 23:15 07/08/24 23:13 07/08/24 23:08 07/08/24 23:04 07/08/24 23:03 07/08/24 22:58 07/08/24 22:55 07/08/24 22:54 07/08/24 22:53 07/08/24 22:48 07/08/24 22:45 07/08/24 22:44 07/08/24 22:43 07/08/24 22:38 07/08/24 22:35 07/08/24 22:34 07/08/24 22:33 07/08/24 22:28 07/08/24 22:25 07/08/24 22:25 07/08/24 22:23 07/08/24 22:21 07/08/24 22:18 07/08/24 22:15 07/08/24 22:13 07/08/24 19:21 07/08/24 19:04 07/08/24 19:00 Transfer of Care Handoff Completed per policy Notes Mental Status: alert / awake / arousable and participated in evaluation Nausea / Vomiting: adequately controlled Pain: adequately controlled Airway Patency, RR, SpO2: stable & adequate BP & HR: stable & adequate Hydration State: stable & adequate Neuraxial Anesthesia: was administered and sensory block is resolving Anesthetic Complications: no major complications apparent and Pt Satisfied with anesthetic care
[2024-07-09] MEDS: SODIUM CHLORIDE 0.9% 1,000 ML IV SCH (01:23)
[2024-07-09] MEDS: MoRPHine SULFATE PF 1 MG/ML 10 ML AMP/VIAL INT SPINAL ONE (01:23)
[2024-07-09] MEDS: DIPHTHER/TETAN/PERTUS Vaccine (Tdap, Adol/Adult) 0.5mL IM ONE (01:23)
[2024-07-09] MEDS: MEASLES, MUMPS & RUBELLA VIRUS VACCINE (MMR) 0.5ML VIAL SQ ONE (01:24)
[2024-07-09] MEDS: LACTATED RINGER'S 1,000 ML IV SCH ×2 (01:24)
[2024-07-09] MEDS: LACTATED RINGER'S 500 ML IV ONE (01:45)
--- OUTSIDE RECORDS SUMMARY | 2024-07-09 03:18 | External Medical Summary | Summary of Care ---
Author Name Unknown Organization [facility] Address [address] [facility] [place] [address] Phone [phone] Care Team Providers Care Compliance Review Specialist Name Role Phone Mark Snow MD Primary Care Provider [phone] Reason for Visit * Reason Onset Date Comments Surgery 07/02/2024 Encounter Details Date Type Department Care Team (Late st Contact Info) Description 07/02/2024 Telephone Gynecology/Obstetrics [facility] [address] [place] [address] Kendra Sánchez CRNP [address] [place] [address] Surgery Allergies Active Allergy Reactions Criticality Noted Date Comments Benzoyl Peroxide 03/29/2011 documented as of this encounter (statuses as of 07/03/2024) Medications Medication Sig Dispensed Refills Start Date End Date Status Vit-Fe Fumarate-FA ( FORMULA) 28-0.8 MG TABS Take by mouth. Active DHA 200 MG Oral Capsule (docosahexaenoic Acid) Take 1 Capsule by mouth in the morning. Active metroNIDAZOLE 1 % External Gel (Metrogel)Indications :Perioral dermatitis Apply topically to affected area 2 times a day. To affected area. 60 g 11 01/31/2024 Active documented as of this encounter (statuses as of 07/03/2024) Active Problems Problem Noted Date Diagnosed Date Supervision of other normal , antepartu m 12/29/2023 History of shoulder dystocia in prior 12/29/2023 Overview: Shoulder dystocia with first delivery Rh negative, antepartum 04/15/2022 Overview: Estimated Date of Delivery Comme nts Yes 07/18/2024 Based on Ultraso und documented as of this encounter (statuses as of 07/03/2024) Resolved Problems Problem Noted Date Diagnosed Date Resolved Date Low-lying placenta 06/17/2022 Overview: 8mm from os at 24w with persistent placental shelf Encounter for supervision of normal in third trimester 04/15/2022 12/05/2022 Overview: Tdap 07/15/22 Vaginal bleeding in 04/15/2022 12/05/2022 Elevated glucose 11/21/2018 12/28/2018 Overview: 11/14 - failed 1 hr. Ordered 3 hr. - Adry Silver CNM 11/21 - passed 3 hr - Adry Silver CNM ALT (SGPT) level raised 06/25/201804/23 Overview: Needs repeat Repeated WNL. Need for rhogam due to Rh negative mother 06/25/2018 02/07/2019 Overview: Rhogam given 11/14/2018 Tiff Flores RN E. coli UTI 06/25/2018 05/16/2022 Supervision of normal first , antepartum 06/22/2018 02/07/2019 Overview: TDAP given 11/14/2018 Tiff Flores RN Had flu vaccine elsewhere. Encounter for preconception consultation 04/10/2018 06/22/2018 Oral contraceptive use 12/02/201304/10 Routine child health exam 05/15/2002 Other acne 06/22/2018 Overview: sees Dr. Bolden documented as of this encounter (statuses as of 07/03/2024) Immunizations Name Administration Dates Next Due COVID-19 mRNA, LNP-s, No Pre serve, 2-Dose Series (Moderna) 12/04/2020,11/03/2020 HPV Vaccine, 4-Valent 12/24/2008,08/27/2008,0705/2008 Hepatitis B, 0-19 yrs 03/29/2011 Meningococcal Conjugate Vacc ine (Menactra/Menveo) 04/29/2008 PPD 01/31/2024, 1,04/19/2010,04/06 Seasonal Influenza, Quadriva lent, No Preserve, Mdck 07/27/2018 Seasonal Influenza, Trivalen t, (IIV3), with Preserv, (Fluzone) 09/13/2011 TDAP (age 10 and older)(Boostrix) 04/30/2024,,11/14/2018 TDAP, Age 7 and older, IM (Adacel) 04/29/2008 Varicella Vaccine (Chicken Pox) 05/07/2010,04/08 documented as of this encounter Social History Tobacco Use Types Packs/Day Years Used Date Smoking Tobacco: Never Smokeless Tobacco: Never Alcohol Use Standard Drinks/Week Comments No 0 (1 standard drink = 0.6 oz pur e alcohol) Rare PHQ-2 Answer Date Recorded PHQ-2 Score 1 03/21/2019 Hunger Vital Sign Answer Date Recorded Within the past 12 months, y ou worried that your food would run out before you got the money to buy more. Never true 05/28/20 24 Within the past 12 months, t he food you bought just didn't last and you didn't have money to get more. Never true 05/28/2024 Sumrall Depression Scale Answer Date Recorded Sumrall Depression Scale Total 1 05/28/2024 The thought of harming myself has occurred to me . Never 05/28/2024 Childcare Answer Date Recorded Do you feel overwhelmed with taking care of a child, family member or friend? No 05/28/2024 Does your family need help f inding childcare? (Household - for ages 0-17 years) Not on file 05/28/2024 Clothing Answer Date Recorded Have you been unable to get clothing when it was really needed? No 05/28/2024 Is your family able to get c lothes or diapers when needed? (Household - for ages 0-17 years) Not on file 05/28/2024 Personal Safety Answer Date Recorded Do you feel unsafe or have concerns for your saf ety? No 05/28/2024 Do you have concerns for you r family's safety? (Household - for ages 0-17 years) Not on file 05/28/2024 Utilities Answer Date Recorded Do you have trouble paying y our heating, water, or electric bill? No 05/28/2024 Is your family able to pay t he heat, water, or electric bill? (Household - for ages 0-17 years) Not on file 05/28/2024 Does your family have access to good internet? (Household - for ages 0-17 years) Not on file 05/28/2024 Employment Status Answer Date Recorded Are you unemployed or without regular income? No 05/28/2024 Does the household have a re lar source of income? (Household - for ages 0-17 years) Not on file 05/28/2024 Social Connections Answer Date Recorded How often do you feel lonely or isolated from th ose around you? Never 05/28/2024 Financial Resource Strain Answer Date R ecorded Do you have any trouble payi ng for your medications, or do you think you might in the future? No 05/28/2024 Does your family have troubl e paying for medicine? (Household - for ages 0-17 years) Not on file 05/28/2024 Transportation Needs Answer Date Record ed Do you have trouble getting a ride to medical visits or work? (Adult - for ages 18 years and over) Not on file 05/28/2024 Does your family have a hard time getting a ride to doctors visits? (Household - for ages 0-17 years) Not on file 05/28/2024 Has lack of transportation k ept you from medical appointments, meetings, work, or from getting things needed for daily living? Check all that apply. No 05/28/2024 Do you (or your family) have trouble finding or paying for a ride (transportation)? (Household - for ages 0-17 years) Not on file 05/28/2024 Housing Stability Answer Date Recorded Do you currently live in a s helter or have no steady place to sleep at night? No 05/28/2024 Do you think you are at risk of becoming homeless? (Adult - for ages 18 years and over) Not on file 05/28/2024 Does your family worry about paying for your home or becoming homeless? (Household - for ages 0-17 years) Not on file 0 05/28/2024 Are you homeless or worried that you might be in the future? No 05/28/2024 Are you (or your family) guadalupe eless or worried that you might be in the future? (Household - for ages 0-17 years) Not on file Food Insecurity Answer Date Recorded Do you need food for this week? No 05/28/2024 Are you able to get enough f ood for your family? (Household - for ages 0-17 years) Not on file 05/28/2024 Does your family need food t his week? (Household - for ages 0-17 years) Not on file 05/28/2024 Do you always have enough fo od for your family? (Household - for ages 0-17 years) Not on file 05/28/2024 Estimated Date of Delivery Comme nts Yes 07/18/2024 Based on Ultraso und Sex and Gender Information Value Date Recorded Sex Assigned at Female 02/24/2022 4:00 PM EDT Gender Identity Female 02/24/2022 4:00 PM EDT Sexual Orientation Straight 02/24/2022 4: 00 PM EDT Job Start Date Occupation Industry Not on file Not on file Not on file documented as of this encounter Miscellaneous Notes * Telephone Encounter - Dahlia Shrestha OSA - 07/03/2024 8:13 AM EDT I spoke with pt and advised that c/section is scheduled for 07/15. * Telephone Encounter - Cherelle Mejia LPN - 07/02/2024 11:44 AM EDT Pt called in asking the status of her csection please review and call pt. documented in this encounter Plan of Treatment Upcoming Encounters Date Type Department Care Team (Late st Contact Info) Description 07/05/2024 2:45 PM EDT Office Visit Gynecology/Obstetrics [facility] [address] [place] [address] Ty Elkins MD [address] [place] [address] 07/09/2024 3:00 PM EDT Office Visit Gynecology/Obstetrics [facility] [address] [place] [address] Ty Elkins MD [address] [place] [address] 07/15/2024 4:30 PM EDT Office Visit Gynecology/Obstetrics [facility] [address] [place] [address] Jane Mcguire PA-C [address] [place] [address] Health Maintenance Due Date Last Done Comments Depression Screening 03/21/2020 03/21/2019 HPV/Co-Test 2022 COVID-19 Vaccine ( season) 2024 12/04/2020, 11/03/2020 Influenza Vaccine (FLU shot) (#1) 2024 07/27/2018, 09/13/2011 Cervical Cancer Screening 02/24/2025 Pap Smear 02/24/2025 02/24/2022, 03/23, 11/25/2014, Additional history exists DTap/Tdap Vaccines (10 - Td or Tdap) 04/30/2034 04/30/2024, 07/15/2022, 11/14/2018, Additional history exists MENINGOCOCCAL (MENACTRA/MENVEO) Aged Out 04/29/2008 No longer eligible based on patient's age to complete this topic HPV (Gardasil) Vaccine Completed 9, 08/27/2008, 04/29/2008 Hepatitis B Vaccine Completed 03/29/2011, 1992, 1992, Additional history exists Pneumococcal Vaccine: Pediatrics (0 to 5 Years) and At-Risk Patients (6 to 64 Years) Aged Out No longer eligible based on patient's age to complete this topic documented as of this encounter Medical Devices Not on filedocumented as of this encounter Care Teams Compliance Review Specialist Relationship Specialty Start Date End Date February, Mark Liang MD [address] [place] [address] PCP - General Family Medicine 01/18/24 documented as of this encounter
--- OUTSIDE RECORDS SUMMARY | 2024-07-09 03:18 | External Medical Summary | Summary of Care ---
Author Name Unknown Organization [facility] Address [address] [facility] [place] [address] Phone [phone] Care Team Providers Care Wire Chief Name Role Phone Mark Snow MD Primary Care Provider [phone] Reason for Visit * Reason Comments Return Visit Encounter Details Date Type Department Care Team (Late st Contact Info) Description 07/05/2024 2:45 PM EDT Office Visit Gynecology/Obstetric s [facility] [address] [place] [address] Ty Elkins MD [address] [place] [address] Rh negative, antepartum*; Supervision of other normal , antepartum; History of shoulder dystocia in prior ; Preop testing Allergies Active Allergy Reactions Criticality Noted Date Comments Benzoyl Peroxide 03/29/2011 documented as of this encounter (statuses as of 07/05/2024) Medications Medication Sig Dispensed Refills Start Date [...] as of this encounter (statuses as of 07/05/2024) Active Problems Problem Noted Date Diagnosed Date Supervision of other normal , antepartu m 12/29/2023 History of shoulder dystocia in prior 12/29/2023 Overview: Shoulder dystocia with first delivery Rh negative, antepartum 04/15/2022 Overview: Estimated Date of Delivery Comme nts Yes 07/18/2024 Based on Ultraso und documented as of this encounter (statuses as of 07/05/2024) Resolved Problems Problem Noted Date Diagnosed Date [...] 06/25/2018 02/07/2019 Overview: Rhogam given 11/14/2018 Tiff Flores, HUMZA E. coli UTI 06/25/2018 05/16/2022 Supervision of normal first , antepartum 06/22/2018 02/07/2019 Overview: TDAP given 11/14/2018 Tiff Flores, HUMZA Had flu vaccine elsewhere. Encounter for preconception consultation 04/10/2018 06/22/2018 Oral contraceptive use 12/02/201304/10 Routine child health exam 05/15/2002 Other acne 06/22/2018 Overview: sees Dr. Bolden documented as of this encounter (statuses as of 07/05/2024) Immunizations Name Administration Dates Next Due COVID-19 mRNA, LNP-s, No Pre serve, 2-Dose Series (Moderna) 12/04/2020,11/03/2020 HPV Vaccine, 4-Valent 12/24/2008,08/27/2008,05/2008 Hepatitis B, 0-19 yrs 03/29/2011 Meningococcal Conjugate [...] money to get more. Never true 05/28/2024 Divide Depression Scale Answer Date Recorded Divide Depression Scale Total 1 05/28/2024 The thought [...] No 05/28/2024 Does the household have a [facility]? (Household - for ages [...] on file documented as of this encounter Last Filed Vital Signs Vital Sign Reading Time Taken Comments Blood Pressure 114/68 07/05/2024 2:53 PM EDT Pulse - - Temperature - - Respiratory Rate - - Oxygen Saturation - - Inhaled Oxygen Concentration - - Weight 78.9 kg (174 lb) 07/05/2024 2:53 PM EDT Height 175.3 cm (5' 9") 07/05/2024 2:53 PM EDT Body Mass Index 25.7 07/05/2024 2:53 PM EDT documented in this encounter Progress Notes * Cherelle Mejia, KAREEM - 07/05/2024 2:53 PM EDT 38w1d Pt is here for pre-op documented in this encounter H&P Notes * Ty Elkins MD - 07/05/2024 3:20 PM EDT Derek [address] [address] Appt line [phone] Dilcia Hunt is a 34 year old year old year old at 38w1d Patient is . Estimated Date of Delivery: 07/18/24 Pt has shoulder dystocia with her last and wishes to have elective c/sec. after counseling Patient is here for H&P Care: Risk Factors: Hx of shoulder dystocia OB History Para Term AB Living 4 2 2 0 1 2 SAB IAB Ectopic Multiple Live Births 1 0 0 0 2 # Outcome Date GA Lbr Jani/2nd Weight Sex Type Anes PTL Lv 4 Current 3 Term 10/08/22 40w3d 4.196 kg (9 lb 4 oz) M Vag-Spont Local AYESHA Comments: 2nd degree lac Complications: Shoulder Dystocia 2 SAB 08/2021 1 Term 02/07/19 40w2d 3.479 kg (7 lb 10.7 oz) M Vag-Spont Local N AYESHA Complications: Second degree perineal laceration Date Labor Sex Delivery Anesth Del Comments GA Length Weight Type Site Button Tacker History: Menstrual Index: // days. Denies h/o STDs and abnormal Paps. Her past medical/surgical histories and current medications are recorded in the electronic record. 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 (Adult - for ages 18 years and over): No Does your family have trouble paying for medicine? (Household - for ages 0-17 years): Not on file Food Insecurity: No Food Insecurity (05/28/2024) Food Insecurity Do you need food for this week? (Adult - for ages 18 years and over): No Are you able to get enough food for your family? (Household - for ages 0-17 years): Not on file Does your family need food this week? (Household - for ages 0-17 years): Not on file Do you always have enough food for your family? (Household - for ages 0-17 years): Not on file Transportation Needs: No Transportation Needs (05/28/2024) Transportation Needs Do you have trouble getting a ride to medical visits or work? (Adult - for ages 18 years and over):Not on file Does your family have a hard time getting a ride to doctors visits? (Household - for ages 0-17 years): Not on file Has lack of transportation kept you from medical appointments, meetings, work, or from getting things needed for daily living? Check all that apply. (Adult - for ages 18 years and over): No Do you (or your family) have trouble finding or paying for a ride (transportation)? (Household - for ages 0-17 years): Not on file Social Connections: Socially Integrated (05/28/2024) Social Connections How often do you feel lonely or isolated from those around you? (Adult - for ages 18 years and over): Never Housing Stability: Low Risk (05/28/2024) Housing Stability Do you currently live in a prison or have no steady place to sleep at night? (Adult - for ages 18 years and over): No Do you think you are at risk of becoming homeless? (Adult - for ages 18 years and over): Not on file Does your family worry about paying for your home or becoming homeless? (Household - for ages 0-17 years): Not on file Are you homeless or worried that you might be in the future? (Adult - for ages 18 years and over): No Are you (or your family) homeless or worried that you might be in the future? (Household - for ages0-17 years): Not on file @[facility]@ Physical Exam: BP 114/68 | Ht 1.753 m (5' 9") | Wt 78.9 kg (174 lb) | LMP 10/03/2023 | BMI 25.70 kg/m | BSA 1.96m CV: S1, S2. Regular rate and Rhythm Lungs: Clear to auscultation bilaterally. Abdomen: Soft with a gravid uterus and no palpable contractions. Fundal Height: 37cms heart rate: 140/min Extremities: Soft non tender calves bilaterally. A/P: 34 year old year old Hx of shoulder dystocia with last delivery Pt is counseled of vaginal delivery and c/sec as it pertains to shoulder dystocia, as well as risk and complications of c/sec We have discussed the risk alternatives and complications of surgery including more surgery to correct complication,risk of anesthesia,infection,damage to internal organs and . We have also discussed the possibility that pt's present situation may not change. Pt is aware and wishes to proceed to surgery. Consent is signed Ty Elkins MD 07/05/2024 3:20 PM documented in this encounter Plan of Treatment Upcoming Encounters Date Type Department Care Team (Late st Contact Info) Description 07/09/2024 3:00 PM EDT Office Visit Gynecology/Obstetrics [facility] [address] [place] [address] Ty Elkins MD [address] [place] [address] 07/15/2024 4:30 PM EDT Office Visit Gynecology/Obstetrics [facility] [address] [place] [address] Jane Mcguire PA-C [address] [place] [address] Health Maintenance Due Date Last Done Comments [...] Not on filedocumented as of this encounter Visit Diagnoses Diagnosis Rh negative, antepartum- Primary Rhesus isoimmunization affecting management of mother, antepartum condition Supervision of other normal , antepartum History of shoulder dystocia in prior Preop testing Preoperative examination, unspecified documented in this encounter Care Teams Wire Chief Relationship Specialty Start Date End Date February, Mark Liang MD [address] [place] [address] PCP - General Family Medicine 01/18/24 documented as of this encounter
--- OUTSIDE RECORDS SUMMARY | 2024-07-09 03:19 | External Medical Summary ---
Author Name Unknown Address Unknown Organization [id number] [place] [address] [place] [address] Laboratory Report Ordering Provider Test Date Status CORA LICONA 05/03/2024 10:15:31 Final Observation Date Value Abnormality Reference (Units ) Status Glucose, 2-hr post glucose challenge 05/03/2024 10:15:31 114 70-154 (mg/dL) Final Performing Location [facility] [place] [address] [place] [address]
--- OUTSIDE RECORDS SUMMARY | 2024-07-09 03:19 | External Medical Summary | Summary of Care ---
Author Name Unknown Organization [facility] Address [address] [facility] [place] [address] Phone [phone] Care Team Providers Care Lathing Supervisor Name Role Phone Mark Snow MD Primary Care Provider [phone] Reason for Visit * Reason Comments Return Visit Encounter Details Date Type Department Care Team (Late st Contact Info) Description 06/21/2024 2:30 PM EDT Office Visit Gynecology/Obstetric s [facility] [address] [place] [address] Kendra Sánchez CRNP [address] [place] [address] Supervision of other normal , antepartum*; Rh negative, antepartum; History of shoulder dystocia in prior Allergies Active Allergy Reactions Criticality Noted Date Comments Benzoyl Peroxide 03/29/2011 documented as of this encounter (statuses as of 06/21/2024) Medications Medication Sig Dispensed Refills Start Date [...] as of this encounter (statuses as of 06/21/2024) Active Problems Problem Noted Date Diagnosed Date Supervision of other normal , antepartu m 12/29/2023 History of shoulder dystocia in prior 12/29/2023 Overview: Shoulder dystocia with first delivery Rh negative, antepartum 04/15/2022 Overview: Estimated Date of Delivery Comme nts Yes 07/18/2024 Based on Ultraso und documented as of this encounter (statuses as of 06/21/2024) Resolved Problems Problem Noted Date Diagnosed Date [...] as of this encounter (statuses as of 06/21/2024) Immunizations Name Administration Dates Next Due COVID-19 mRNA, LNP-s, No Pre serve, 2-Dose Series (Moderna) 12/04/2020,11/03/2020 HPV Vaccine, 4-Valent 12/24/2008,08/27/2008,07/0 05/2008 Hepatitis B, 0-19 yrs 03/29/2011 Meningococcal Conjugate [...] money to get more. Never true 05/28/2024 Kinney Depression Scale Answer Date Recorded Kinney Depression Scale Total 1 05/28/2024 The thought [...] No 05/28/2024 Does the household have a [facility] source [facility] income? (Household - for [...] Sign Reading Time Taken Comments Blood Pressure 96/70 06/21/2024 2:44 PM EDT Pulse - - Temperature - - Respiratory Rate - - Oxygen Saturation - - Inhaled Oxygen Concentration - - Weight 78.5 kg (173 lb) 06/21/2024 2:44 PM EDT Height 175.3 cm (5' 9") 06/21/2024 2:44 PM EDT Body Mass Index 25.55 06/21/2024 2:44 PM EDT documented in this encounter Progress Notes * Kendra Sánchez CRNP - 06/21/2024 3:08 PM EDT 36w1d Had discussion with Dr. Elkins last week regarding history of shoulder dystocia. He recommends growth u/s at 37w, order placed. She is really hoping for spontaneous labor, but does not wish for another shoulder dystocia. No other concerns. Baby is moving well. Denies contractions, bleeding, LOF. Seasonal Customer Service Associate Documentation Patient offered traffic inspector and declined. GBS done. BERTRAND Lloyd documented in this encounter Nursing Notes * Anabella Perry LPN - 06/21/2024 2:45 PM EDT 36w1d GBS today Due for growth next week. documented in this encounter Plan of Treatment Upcoming Encounters Date Type Department Care Team (Late st Contact Info) Description 07/02/2024 9:00 AM EDT Office Visit Gynecology/Obstetrics [facility] [address] [address] Kendra Sánchez CRNP [address] [place] [address] 07/09/2024 3:00 PM EDT Office Visit Gynecology/Obstetrics [facility] [address] [place] [address] Ty Elkins MD [address] [place] [address] 07/15/2024 4:30 PM EDT Office Visit Gynecology/Obstetrics [facility] [address] [place] [address] Jane Mcguire PA-C [address] [place] [address] Pending Results Name Type Priority Associated Diagnoses Date /Time GROUP B STREP CULTURE/PCR Lab Routine Supervision of other normal , antepartum 06/21/2024 3:17 PM EDT Scheduled Orders Name Type Priority Associated Diagnoses Orde r Schedule US PREG FOLLOW-UP EACH FETUS Medical Imaging Routine Supervision of other normal , antepartum History of shoulder dystocia in prior Expected: 06/28/2024 (Approximate), Expires: 07/22/2025 Health Maintenance Due Date Last Done Comments Depression Screening 03/21/2020 03/21/2019 HPV/Co-Test 2022 COVID-19 Vaccine ( season) 2023 12/04/2020, 11/03/2020 Influenza Vaccine (FLU shot) (#1) 2024 07/27/2018, 09/13/2011 Cervical Cancer Screening 02/24/2025 Pap Smear 02/24/2025 02/24/2022, 03/23, 11/25/2014, Additional history exists DTap/Tdap Vaccines (10 - Td or Tdap) 04/30/2034 04/30/2024, 07/15/2022, 11/14/2018, Additional history exists MENINGOCOCCAL (MENACTRA/MENVEO) Aged Out 04/29/2008 No longer eligible based on patient's age to complete this topic HPV (Gardasil) Vaccine Completed , 08/27/2008, 04/29/2008 Hepatitis B Vaccine Completed 03/29/2011, 1992, 1992, Additional history exists Pneumococcal Vaccine: Pediatrics (0 to 5 Years) and At-Risk Patients (6 to 64 Years) Aged Out No longer eligible based on patient's age to complete this topic documented as of this encounter Medical Devices Not on filedocumented as of this encounter Visit Diagnoses Diagnosis Supervision of other normal , antepartum- Primary Rh negative, antepartum Rhesus isoimmunization affecting management of mother, antepartum condition History of shoulder dystocia in prior documented in this encounter Care Teams Lathing Supervisor Relationship Specialty Start Date End Date February, Mark Liang MD [address] [place] [address] PCP - General Family Medicine 01/18/24 documented as of this encounter
--- OUTSIDE RECORDS SUMMARY | 2024-07-09 03:19 | External Medical Summary ---
Author Name Unknown Address Unknown Organization K[facility] [place] [address] [place] [address] Laboratory Report Ordering Provider Test Date Status CORA LICONA 06/21/2024 15:17:15 Final Observation Date Value Abnormality Reference (Units ) Status Streptococcus agalactiae DNA [Presence] in Specimen by NAMITA with probe detection 06/21/2024 15:17:15 Negative Negative Final No Group B Streptococcus det ected by culture-enhanced PCR (amplified probe). GBS GBSCT - [facility] 06/21/2024 15:17:15 0.0 Final GBS SPCCT - [facility] 06/21/2024 15:17:15 31.0 Final Performing Location [facility] [place] [facility] [address] [place] [address]
--- OUTSIDE RECORDS SUMMARY | 2024-07-09 03:19 | External Medical Summary ---
Author Name Unknown Address Unknown Organization K0G[facility] [address] [place] [address] Laboratory Report Ordering Provider Test Date Status CORA LICONA 05/03/2024 11:13:40 Final Observation Date Value Abnormality Reference (Units ) Status Glucose [Mass/volume] in Serum or Plasma --3 hours post dose glucose 05/03/2024 11:13:40 105 70-139 (mg/dL) Final Performing Location [facility] [address] [place] [address]
--- OUTSIDE RECORDS SUMMARY | 2024-07-09 03:19 | External Medical Summary | Summary of Care ---
Author Name Unknown Organization [facility] Address [address] [facility] [place] [address] Phone [phone] Care Team Providers Care Personal Care Attendant Name Role Phone Mark Snow MD Primary Care Provider [phone] Reason for Visit * Reason Onset Date Comments Test Results 04/30/2024 Encounter Details Date Type Department Care Team (Late st Contact Info) Description 04/30/2024 Telephone Gynecology/Obstetrics [facility] [address] [place] [address] Kendra Sánchez CRNP [address] [place] [address] Test Results Allergies Active Allergy Reactions Criticality Noted Date Comments Benzoyl Peroxide 03/29/2011 documented as of this encounter (statuses as of 04/30/2024) Medications Medication Sig Dispensed Refills Start Date [...] as of this encounter (statuses as of 04/30/2024) Active Problems Problem Noted Date Diagnosed Date Supervision of other normal , antepartu m 12/29/2023 History of shoulder dystocia in prior 12/29/2023 Overview: Shoulder dystocia with first delivery Rh negative, antepartum 04/15/2022 Overview: Estimated Date of Delivery Comme nts Yes 07/18/2024 Based on Ultraso und documented as of this encounter (statuses as of 04/30/2024) Resolved Problems Problem Noted Date Diagnosed Date [...] as of this encounter (statuses as of 04/30/2024) Immunizations Name Administration Dates Next Due COVID-19 mRNA, LNP-s, No Pre serve, 2-Dose Series (Moderna) 12/04/2020,11/03/2020 HPV Vaccine, 4-Valent 12/24/2008,08/27/2008,0705/2008 Hepatitis B, 0-19 yrs 03/29/2011 Meningococcal Conjugate Vacc ine (Menactra/Menveo) 04/29/2008 PPD 01/31/2024, 1,04/19/2010,04/06 Seasonal Influenza, Quadriva lent, No Preserve, Mdck 07/27/2018 Seasonal Influenza, Split, I IV3, With Preserve, Inj 09/13/2011 TDAP (age 10 and older)(Boostrix) 04/30/2024,,11/14/2018 [...] the money to buy more. Never true 12/05/19 23 Within the past 12 months, t he food you bought just didn't last and you didn't have money to get more. Never true 12/05/2022 [place] Depression Scale Answer Date Recorded [place] Depression Scale Total 1 12/01/2023 The thought of harming myself has occurred to me . Never 12/01/2023 Utilities Answer Date Recorded Do you have trouble paying y our heating, water, or electric bill? (Adult - for ages 18 years and over) Not on file 04/09/2024 Is your family able to pay t he heat, water, or electric bill? (Household - for ages 0-17 years) Not on file 04/09/2024 Does your family have access to good internet? (Household - for ages 0-17 years) Not on file 04/09/2024 Social Connections Answer Date Recorded How often do you feel lonely or isolated from those around you? (Adult - for ages 18 years and over) Not on file 04/09/2024 Estimated Date of Delivery Comme nts Yes [...] encounter Miscellaneous Notes * Telephone Encounter - Cate Steele LPN - 04/30/2024 3:55 PM EDT Patient notified and agreeable. * Telephone Encounter - Maria Teersa Gonzalez RN - 04/30/2024 3:51 PM EDT left message for patient to call office * Telephone Encounter - Kendra Sánchez CRNP - 04/30/2024 3:22 PM EDT Please notify pt that glucola elevated (147). Needs 3hr GTT. Orders placed. documented in this encounter Plan of Treatment Upcoming Encounters Date Type Department Care Team (Late st Contact Info) Description 05/14/2024 9:15 AM EDT Office Visit Gynecology/Obstetrics [facility] [address] [place] [place] [address] Kendra Sánchez CRNP [address] [place] [address] 05/28/2024 1:30 PM EDT Office Visit Gynecology/Obstetrics [facility] [address] [place] [address] Kendra Sánchez CRNP [address] [place] [address] 06/12/2024 3:00 PM EDT Office Visit Gynecology/Obstetrics [facility] [address] [place] [address] Ty Elkins MD [address] [place] [address] Scheduled Orders Name Type Priority Associated Diagnoses Orde r Schedule GESTATIONAL GLUCOSE TOLERANCE, 3 HOUR Lab Routine Abnormal glucose tolerance in mother complicating Expected: 05/01/2024 (Approximate), Expires: 04/30/2025 Health Maintenance Due Date Last Done Comments Depression Screening 03/21/2020 03/21/2019 HPV/Co-Test 2022 COVID-19 Vaccine ( season) 2023 12/04/2020, 11/03/2020 Influenza Vaccine (FLU shot) (#1) 2024 07/27/2018, 09/13/2011 Cervical Cancer Screening 02/24/2025 Pap Smear 02/24/2025 02/24/2022, 03/23, 11/25/2014, Additional history exists DTaP,Tdap,and Td Vaccines (10 - Td or Tdap) 04/30/2034 [...] as of this encounter Visit Diagnoses Diagnosis Abnormal glucose tolerance in mother complicating - Primary Abnormal maternal glucose tolerance, complicating , childbirth, or the puerperium, unspecified as to episode of care documented in this encounter Care Teams Personal Care Attendant Relationship Specialty Start Date End Date February, Mark Liang MD [address] [place] [address] PCP - General Family Medicine 01/18/24 documented as of this encounter
--- OUTSIDE RECORDS SUMMARY | 2024-07-09 03:19 | External Medical Summary | Summary of Care ---
Author Name Unknown Organization [facility] Address [address] [facility] [place] [address] Phone [phone] Care Team Providers Care Mail Clerks Supervisor Name Role Phone Mark Snow MD Primary Care Provider [phone] Reason for Visit * Reason Comments Return Visit Encounter Details Date Type Department Care Team (Late st Contact Info) Description 06/12/2024 3:00 PM EDT Office Visit Gynecology/Obstetric s [facility] [address] [place] [address] yT Elkins MD [address] [place] [address] Rh negative, antepartum*; Supervision of other normal , antepartum; History of shoulder dystocia in prior Allergies Active Allergy Reactions Criticality Noted Date Comments Benzoyl Peroxide 03/29/2011 documented as of this encounter (statuses as of 06/12/2024) Medications Medication Sig Dispensed Refills Start Date [...] as of this encounter (statuses as of 06/12/2024) Active Problems Problem Noted Date Diagnosed Date Supervision of other normal , antepartu m 12/29/2023 History of shoulder dystocia in prior 12/29/2023 Overview: Shoulder dystocia with first delivery Rh negative, antepartum 04/15/2022 Overview: Estimated Date of Delivery Comme nts Yes 07/18/2024 Based on Ultraso und documented as of this encounter (statuses as of 06/12/2024) Resolved Problems Problem Noted Date Diagnosed Date [...] as of this encounter (statuses as of 06/12/2024) Immunizations Name Administration Dates Next Due COVID-19 [...] money to get more. Never true 05/28/2024 [place] Depression Scale Answer Date Recorded [place] Depression Scale Total 1 05/28/2024 The thought [...] No 05/28/2024 Does the household have a [facility] source of income? (Household - for [...] Sign Reading Time Taken Comments Blood Pressure 106/62 06/12/2024 3:10 PM EDT Pulse - - Temperature - - Respiratory Rate - - Oxygen Saturation - - Inhaled Oxygen Concentration - - Weight 77.1 kg (170 lb) 06/12/2024 3:10 PM EDT Height 175.3 cm (5' 9") 06/12/2024 3:10 PM EDT Body Mass Index 25.1 06/12/2024 3:10 PM EDT documented in this encounter Progress Notes * Ty Elkins MD - 06/12/2024 3:46 PM EDT Pt doing well S/p shoulder dystocia for macrosomia Pt is presently 34 weeks and EFW is nml Discussed risk of another shoulder dystocia and brachial plexus as well as permanent injuries Pt really wants a vaginal delivery. Informed patient that if she wishes to proceed with a vaginal delivery then the recommendation willbe for her to have estimated weight around 37 weeks and consider induction at 39 weeks as long as the weight is with in normal range and and consider induction at 39 weeks * Cherelle Mejia LPN - 06/12/2024 3:10 PM EDT 34w6d Discuss delivery due to shoulder dystocia documented in this encounter Plan of Treatment Upcoming Encounters Date Type Department Care Team (Late st Contact Info) Description 06/21/2024 2:30 PM EDT Office Visit Gynecology/Obstetrics [facility] [address] [place] [address] Kendra Sánchez CRNP [address] [place] [address] 07/02/2024 9:00 AM EDT Office Visit Gynecology/Obstetrics [facility] [address] [place] [address] Kendra Sánchez CRNP [address] [place] [address] 07/09/2024 3:00 PM EDT Office Visit Gynecology/Obstetrics [facility] [address] [place] [address] Ty Elkins MD [address] [place] [address] 07/15/2024 4:30 PM EDT Office Visit Gynecology/Obstetrics [facility] [address] [place] [address] Jane Mcguire PA-C [address] [place] [address] Health Maintenance Due Date Last Done Comments [...] antepartum History of shoulder dystocia in prior documented in this encounter Care Teams Mail Clerks Supervisor Relationship Specialty Start Date End Date February, [facility] [address] [facility] [address] PCP - General Family Medicine 01/18/24 documented as of this encounter
--- OUTSIDE RECORDS SUMMARY | 2024-07-09 03:19 | External Medical Summary | Summary of Care ---
Author Name Unknown Organization [facility] Address [address] [facility] [place] [address] Phone [phone] Care Team Providers Care Residential Door Unit Installer Name Role Phone Mark Snow MD Primary Care Provider [phone] Reason for Visit * Reason Comments Return Visit Encounter Details Date Type Department Care Team (Late st Contact Info) Description 04/30/2024 1:30 PM EDT Office Visit Gynecology/Obstetric s [facility] [address] [place] [address] Kendra Sánchez CRNP [address] [place] [address] Supervision of other normal , antepartum*; Rh negative, antepartum; History of shoulder dystocia in prior ; Need for njbjucebrg-rkwpcjj-iv rtussis (Tdap) vaccine Allergies Active Allergy Reactions Criticality Noted Date [...] affected area. 60 g 11 01/31/2024 Active Hospital, Clinic, or Other Facility Administered Medication Ordered Dose Route Frequency Start Date End Date Status Rho D Immune Globulin (Rhophylac) inj 300 mcgIndications:Rh negative, antepartum 300 mcg IM ONCE 04/30/2024 04/30/2024 Ended documented as of this encounter (statuses as [...] money to get more. Never true 12/05/2022 [place] Depression Scale Answer Date Recorded [place] Depression Scale Total 1 12/01/2023 The thought [...] Sign Reading Time Taken Comments Blood Pressure 104/62 04/30/2024 1:18 PM EDT Pulse - - Temperature - - Respiratory Rate - - Oxygen Saturation - - Inhaled Oxygen Concentration - - Weight 71.8 kg (158 lb 6.4 oz) 04/30/2024 1:18 P M EDT Height - - Body Mass Index 23.39 04/02/2024 9:05 AM EDT documented in this encounter Progress Notes * Kendra Sánchez CRNP - 04/30/2024 1:34 PM EDT 28w5d No concerns. Baby is active. Denies contractions, bleeding, LOF. Glucola, TDAP, Rhogam today. BERTRAND Lloyd * Adia Casey, MED ASSIST - 04/30/2024 1:18 PM EDT 28w5d Denies vaginal bleeding/rom + movements No new concerns Agreeable to TDAP today documented in this encounter Plan of Treatment Upcoming Encounters Date Type Department Care Team (Late st Contact Info) Description 05/14/2024 9:15 AM EDT Office Visit Gynecology/Obstetrics [facility] [address] [place] [address] Kendra Sánchez CRNP [address] [place] [address] 05/28/2024 1:30 PM EDT Office Visit Gynecology/Obstetrics [facility] [address] [place] [address] Kendra Sánchez CRNP [address] [place] [address] 06/12/2024 3:00 PM EDT Office Visit Gynecology/Obstetrics [facility] [address] [place] [address] Ty Elkins MD [address] [place] [address] Health Maintenance Due Date Last Done Comments [...] condition History of shoulder dystocia in prior Need for qtgmkgdfzy-wjpvprh-hgmicskrn (Tdap) vaccine Need for prophylactic vaccination with combined bczrbljopn-eywtalz-txfiugltg (DTP) vaccine documented in this encounter Administered Medications Inactive Administered Medications - up to 3 most recent administrations Medication Order MAR Action Action Date Dose Rate Site Rho D Immune Globulin (Rhophylac) inj 300 mcg 300 mcg, Intramuscular, ONCE, On Mon04/30/24 at 1400, For 1 dose, Do not administer until type and screen has been collected! 1 MCG = 5 INTERNATIONAL UNITS Given 04/30/2024 2:36 PM EDT 300 mcg Thigh Left Lateral documented in this encounter Care Teams Residential Door Unit Installer Relationship Specialty Start Date End Date February, Mark Liang MD [address] [place] [address] PCP - General Family Medicine 01/18/24 documented as of this encounter
--- OUTSIDE RECORDS SUMMARY | 2024-07-09 03:19 | External Medical Summary ---
Author Name Unknown Address Unknown Organization K0G:[facility] [place] [address] [place] [address] Laboratory Report Ordering Provider Test Date Status LIVANCORA 05/03/2024 08:10:16 Final Based on ACOG guideline, ges tational diabetes mellitus is diagnosed when any of the following is met:
Fasting is greater than or equal to 95 mg/dL
1 hour is greater than or equal to 180 mg/dL
2 hour is greater than or equal to 155 mg/dL
3 hour is greater than or equal to 140 mg/dL Observation Date Value Abnormality Reference (Units ) Status Glucose, fasting 05/03/2024 08:10:16 87 70- 94 (mg/dL) Final Performing Location [facility] [place] [address] [place] [address]
--- OUTSIDE RECORDS SUMMARY | 2024-07-09 03:19 | External Medical Summary | Summary of Care ---
Author Name Unknown Organization [facility] Address [address] [facility] [place] [address] Phone [phone] Care Team Providers Care President And Cmo Name Role Phone Mark Snow MD Primary Care Provider [phone] Reason for Visit * Reason Comments Outpatient Testing Encounter Details Date Type Department Care Team (Late st Contact Info) Description 05/03/2024 8:20 AM EDT Laboratory Laboratory, [facility] [id number] [facility] 132 [facility] [address] Abnormal glucose tolerance in mother complicating Allergies Active Allergy Reactions Criticality Noted Date Comments Benzoyl Peroxide 03/29/2011 documented as of this encounter (statuses as of 05/03/2024) Medications Medication Sig Dispensed Refills Start Date [...] as of this encounter (statuses as of 05/03/2024) Active Problems Problem Noted Date Diagnosed Date Supervision of other normal , antepartu 12/29/2023 History of shoulder dystocia in prior 12/29/2023 Overview: Shoulder dystocia with first delivery Rh negative, antepartum 04/15/2022 Overview: Estimated Date of Delivery Comme nts Yes 07/18/2024 Based on Ultraso und documented as of this encounter (statuses as of 05/03/2024) Resolved Problems Problem Noted Date Diagnosed Date [...] as of this encounter (statuses as of 05/03/2024) Immunizations Name Administration Dates Next Due COVID-19 mRNA, LNP-s, No Pre serve, 2-Dose Series (Moderna) 12/04/2020,11/03/2020 DTP/HIB (Tetramune) 06/10/1997,08/16/1993 DTWP - Dipth/Tet/Whole Cell Pertussis 1992 ,1992,1992 HPV Vaccine, 4-Valent 12/24/2008,08/27/2008,0705/2008 Haemophilius B (HIB), unspecified 1992,1992,1992,07/13 Hepatitis B Vaccine 1992,1992,1991 Hepatitis B, 0-19 yrs 03/29/2011 MMR - Measles/Mumps/Rubella Vaccine 06/10/1997,1 Meningococcal Conjugate Vacc ine (Menactra/Menveo) 04/29/2008 OPV - Polio Virus Vaccine (Oral) 997,08/16/1993,1992,07/13 PPD 01/31/2024, 1,04/19/2010,04/06 Seasonal Influenza, Quadriva lent, No Preserve, Mdck 07/27/2018 Seasonal Influenza, Split, I IV3, With Preserve, Inj 09/13/2011 TB Barb Test 11/10/1993 TDAP (age 10 and older)(Boostrix) 04/30/2024,,11/14/2018 TDAP, Age 7 and older, IM (Adacel) 04/29/2008 Varicella Vaccine (Chicken Pox) 05/07/2010,04/08,05/22/1995 documented as of this encounter Social History [...] money to get more. Never true 12/05/2022 [place] Depression Scale Answer Date Recorded [place] Depression Scale Total 1 12/01/2023 The thought [...] on file documented as of this encounter Plan of Treatment Upcoming Encounters Date Type Department Care Team (Late st Contact Info) Description 05/14/2024 9:15 AM EDT [facility] [address] [place] [address] Kendra Sánchez CRNP [address] [place] [address] 05/28/2024 1:30 PM EDT [facility] [address] [place] [address] Kendra Sánchez CRNP [address] [place] [address] 06/12/2024 3:00 PM EDT Office Visit Gynecology/Obstetrics Fredy Mc [address] [place] [address] Ty Elkins MD [address] [place] [address] Pending Results Name Type Priority Associated Diagnoses Date /Time GESTATIONAL GLUCOSE TOLERANCE, 3 HOUR Lab Routine Abnormal glucose tolerance in mother complicating 05/03/2024 8:10 AM EDT 100-G GESTATIONAL GLUCOSE, 2 HOUR Lab Routine Abnormal glucose tolerance in mother complicating 05/03/2024 10:15 AM EDT Scheduled Orders Name Type Priority Associated Diagnoses Orde r Schedule 100-G GESTATIONAL GLUCOSE, 3 HOUR Lab Routine Abnormal glucose tolerance in mother complicating Ordered: 05/03/2024 Health Maintenance Due Date Last Done Comments [...] Not on filedocumented as of this encounter Procedures Procedure Name Priority Date/Time Associated Diagnosis Comments 100-G GESTATIONAL GLUCOSE, 1 HOUR Routine 05/03/2024 9:15 AM EDT Abnormal glucose tolerance in mother complicating 100-G GESTATIONAL GLUCOSE, FASTING Routine 05/03/2024 8:10 AM EDT Abnormal glucose tolerance in mother complicating documented in this encounter Results * 100-G GESTATIONAL GLUCOSE, 1 HOUR (05/03/2024 9:15 AM EDT) 100-g Gestational Glucose, 1 Hour 161 70 - 179 mg/dL 05/03/2024 10:03 AM EDT [facility] [place] [facility]10 Blood Venous blood specimen / Unknown Venipuncture / Unknown 05/03/2024 9:15 AM EDT 05/03/2024 9:15 AM EDT Kendra THURSTON LAB BLOOD ORDERABLES [facility] [place] 57-10 [address] [place] [address] * 100-G GESTATIONAL GLUCOSE, FASTING (05/03/2024 8:10 AM EDT) 100-g Gestational Glucose, Fasting 87 70 - 94 mg/dL 05/03/2024 8:53 AM EDT [facility] [place] [facility]10 Blood Venous blood specimen / Unknown Venipuncture / Unknown 05/03/2024 8:10 AM EDT 05/03/2024 8:10 AM EDT Narrative [facility] [place] [facility]10 - 05/03/2024 8:53 AM EDT Based on ACOG guideline, gestational diabetes mellitus is diagnosed when any of the following is met: Fasting is greater than or equal to 95 mg/dL 1 hour is greater than or equal to 180 mg/dL 2 hour is greater than or equal to 155 mg/dL 3 hour is greater than or equal to 140 mg/dL Kendra Lebron Gonzalo AVILANP LAB BLOOD ORDERABLES [facility] [place] [address] [place] [address] documented in this encounter Visit Diagnoses Diagnosis Abnormal glucose tolerance in mother complicating Abnormal maternal glucose tolerance, complicating , childbirth, or the puerperium, unspecified as to episode of care documented in this encounter Care Teams President And Cmo Relationship Specialty Start Date End Date February, Mark Liang MD [address] [place] [address] PCP - General Family Medicine 01/18/24 documented as of this encounter
--- OUTSIDE RECORDS SUMMARY | 2024-07-09 03:19 | External Medical Summary | Summary of Care ---
Author Name Unknown Organization [facility] Address [address] [facility] [address] Phone [phone] Care Team Providers Care Corporate Staff Accountant Name Role Phone Mark Snow MD Primary Care Provider [phone] Reason for Visit * Reason Comments Return Visit Encounter Details Date Type Department Care Team (Late st Contact Info) Description 05/14/2024 9:15 AM EDT Office Visit Gynecology/Obstetric s Fredy Mc [address] [place] [address] Kendra Sánchez CRNP [address] [place] [address] Supervision of other normal , antepartum*; Rh negative, antepartum; History of shoulder dystocia in prior Allergies Active Allergy Reactions Criticality Noted Date Comments Benzoyl Peroxide 03/29/2011 documented as of this encounter (statuses as of 05/14/2024) Medications Medication Sig Dispensed Refills Start Date [...] as of this encounter (statuses as of 05/14/2024) Active Problems Problem Noted Date Diagnosed Date Supervision of other normal , antepartu m 12/29/2023 History of shoulder dystocia in prior 12/29/2023 Overview: Shoulder dystocia with first delivery Rh negative, antepartum 04/15/2022 Overview: Estimated Date of Delivery Comme nts Yes 07/18/2024 Based on Ultraso und documented as of this encounter (statuses as of 05/14/2024) Resolved Problems Problem Noted Date Diagnosed Date [...] Adry Silver CNM ALT (SGPT) level raised 06/25/2018 0702/2022 Overview: Needs repeat Repeated WNL. Need for [...] as of this encounter (statuses as of 05/14/2024) Immunizations Name Administration Dates Next Due COVID-19 [...] money to get more. Never true 12/05/2022 [place] Depression Scale Answer Date Recorded [place] Depression Scale Total 1 12/01/2023 The thought [...] Sign Reading Time Taken Comments Blood Pressure 102/60 05/14/2024 9:30 AM EDT Pulse - - Temperature - - Respiratory Rate - - Oxygen Saturation - - Inhaled Oxygen Concentration - - Weight 74.5 kg (164 lb 3.2 oz) 05/14/2024 9:30 A M EDT Height 175.3 cm (5' 9") 05/14/2024 9:30 AM EDT Body Mass Index 24.25 05/14/2024 9:30 AM EDT documented in this encounter Progress Notes * Kendra Sánchez CRNP - 05/14/2024 9:43 AM EDT 30w5d Complaints: none Feeling well overall. Good FM. No contractions, bleeding, or LOF. BERTRAND Lloyd documented in this encounter Nursing Notes * Chinyere Santos RN - 05/14/2024 9:31 AM EDT Patient here for BEVERLEY 30w5d No concerns + FM Chinyere Santos RN documented in this encounter Plan of Treatment Upcoming Encounters Date Type Department Care Team (Late st Contact Info) Description 05/28/2024 1:30 PM EDT Office Visit Gynecology/Obstetrics [facility] [address] [place] [address] Kendra Sánchez CRNP [address] [place] [address] 06/12/2024 3:00 PM EDT Office Visit Gynecology/Obstetrics [facility] [address] [place] [address] Ty Elkins MD [address] [place] [address] Health Maintenance Due Date Last Done Comments [...] prior documented in this encounter Care Teams Corporate Staff Accountant Relationship Specialty Start Date End Date February, Mark Liang MD [address] [place] [address] PCP - General Family Medicine 01/18/24 documented as of this encounter
--- OUTSIDE RECORDS SUMMARY | 2024-07-09 03:19 | External Medical Summary | Summary of Care ---
Author Name Unknown Organization [facility] Address [address] [facility] [place] [address] Phone [phone] Care Team Providers Care Actuarial Intern Name Role Phone Mark Snow MD Primary Care Provider [phone] Reason for Visit * Reason Comments Return Visit Encounter Details Date Type Department Care Team (Late st Contact Info) Description 06/21/2024 2:30 PM EDT Office Visit Gynecology/Obstetric s [facility] [address] [place] [address] Kendra Sánchez CRNP [address] [place] [address] Supervision of other normal , antepartum*; Rh [...] money to get more. Never true 05/28/2024 [place] Depression Scale Answer Date Recorded [place] Depression Scale Total 1 05/28/2024 The thought [...] No 05/28/2024 Does the household have a [facility] source of income? (Household - for ages [...] is moving well. Denies contractions, bleeding, LOF. Yeast Distiller Documentation Patient offered disassembler product and declined. GBS done. BERTRAND Lloyd documented in this encounter Nursing Notes * Anabella Perry LPN - 06/21/2024 2:45 PM EDT 36w1d GBS today Due for growth next week. documented in this encounter Plan of Treatment Upcoming Encounters Date Type Department Care Team (Late st Contact Info) Description 07/02/2024 9:00 AM EDT Office Visit Gynecology/Obstetrics [facility] [address] [place] [address] Kendra Sánchez CRNP [address] [place] [address] 07/09/2024 3:00 PM EDT Office Visit Gynecology/Obstetrics [facility] [address] [place] [address] Ty Elkins MD [address] [place] [address] 07/15/2024 4:30 PM EDT Office Visit Gynecology/Obstetrics [facility] [address] [place] [address] Jane Mcguire PA-C [address] [place] [address] Pending Results Name Type Priority Associated Diagnoses [...] prior documented in this encounter Care Teams Actuarial Intern Relationship Specialty Start Date End Date February, Mark Liang MD [address] [place] [address] PCP - General Family Medicine 01/18/24 documented as of this encounter
--- OUTSIDE RECORDS SUMMARY | 2024-07-09 03:19 | External Medical Summary ---
Author Name Unknown Address Unknown Organization [facility] [place] [facility] [facility] - [address] [place] [address] Laboratory Report Ordering Provider Test Date Status CORA LICONA 05/03/2024 09:15:40 Final Observation Date Value Abnormality Reference (Units ) Status Glucose [Mass/volume] in Serum or Plasma --1 hour post dose glucose 05/03/2024 09:15:40 161 70-179 (mg/dL) Final Performing Location [facility] 0 - [address] [place] [address]
--- OUTSIDE RECORDS SUMMARY | 2024-07-09 03:19 | External Medical Summary | Summary of Care ---
Author Name Unknown Organization [facility] Address [address] [facility] [place] [address] Phone [phone] Care Team Providers Care Interactive Media Marketing Strategist Name Role Phone Mark Snow MD Primary Care Provider [phone] Reason for Visit * Reason Comments Outpatient Testing Encounter Details Date Type Department Care Team (Late st Contact Info) Description 05/03/2024 8:20 AM EDT Laboratory Laboratory, [facility] 132 [facility] [phone] [facility] 132 [place] [address] Abnormal glucose tolerance in mother complicating Allergies [...] money to get more. Never true 12/05/2022 [place] Depression Scale Answer Date Recorded [place] Depression Scale Total 1 12/01/2023 The thought [...] 05/14/2024 9:15 AM EDT Office Visit Gynecology/Obstetrics [facility] [address] [place] [address] Kendra Sánchez CRNP [address] [place] [address] 05/28/2024 1:30 PM EDT Office Visit Gynecology/Obstetrics [facility] [address] [place] [address] Kendra Sánchez CRNP [address] [place] [address] 06/12/2024 3:00 PM EDT Office Visit Gynecology/Obstetrics [facility] [address] [place] [address] Ty Elkins MD [address] [place] [address] Pending Results Name Type Priority Associated Diagnoses Date /Time GESTATIONAL GLUCOSE TOLERANCE, 3 HOUR Lab Routine Abnormal glucose tolerance in mother complicating 05/03/2024 8:10 AM EDT 100-G GESTATIONAL GLUCOSE, 1 HOUR Lab Routine Abnormal glucose tolerance in mother complicating 05/03/2024 9:15 AM EDT Scheduled Orders Name Type Priority Associated Diagnoses Orde r Schedule 100-G GESTATIONAL GLUCOSE, 2 HOUR Lab Routine [...] Date/Time Associated Diagnosis Comments 100-G GESTATIONAL GLUCOSE, FASTING Routine 05/03/2024 8:10 AM EDT Abnormal glucose tolerance in mother complicating documented in this encounter Results * 100-G GESTATIONAL GLUCOSE, FASTING (05/03/2024 8:10 AM EDT) 100-g Gestational Glucose, Fasting 87 70 - 94 mg/dL 05/03/2024 8:53 AM EDT LAB[facility] 57[facility]10 Blood Venous blood specimen / Unknown Venipuncture / Unknown 05/03/2024 8:10 AM EDT 05/03/2024 8:10 AM EDT Narrative [facility]10 - 05/03/2024 8:53 AM EDT Based on ACOG guideline, gestational diabetes mellitus is diagnosed when any of the following is met: Fasting is greater than or equal to 95 mg/dL 1 hour is greater than or equal to 180 mg/dL 2 hour is greater than or equal to 155 mg/dL 3 hour is greater than or equal to 140 mg/dL Kendra THURSTON LAB BLOOD ORDERABLES [facility] [place] [facility]10 132 [facility] [place] [address] documented in this encounter Visit Diagnoses Diagnosis Abnormal glucose tolerance in mother complicating Abnormal maternal glucose tolerance, complicating , childbirth, or the puerperium, unspecified as to episode of care documented in this encounter Care Teams Interactive Media Marketing Strategist Relationship Specialty Start Date End Date February, Mark Liang MD [address] [place] [address] PCP - General Family Medicine 01/18/24 documented as of this encounter
--- OUTSIDE RECORDS SUMMARY | 2024-07-09 03:19 | External Medical Summary | Summary of Care ---
Author Name Unknown Organization [facility] Address [address] [facility] [place] [address] Phone [phone] Care Team Providers Care Legal Recovery Specialist Name Role Phone Mark Snow MD Primary Care Provider [phone] Reason for Visit * Reason Comments Return Visit Encounter Details Date Type Department Care Team (Late st Contact Info) Description 06/21/2024 2:30 PM EDT Office Visit Gynecology/Obstetric s [facility]y [facility] [address] [place] [address] Kendra Sánchez CRNP [address] [place] [address] Supervision of other normal , antepartum*; Rh [...] money to get more. Never true 05/28/2024 [place] Depression Scale Answer Date Recorded [place] Depression Scale Total 1 05/28/2024 The thought [...] No 05/28/2024 Does the household have a [facility] source of income? (Household - for [...] is moving well. Denies contractions, bleeding, LOF. Award Clerk Documentation Patient offered salon designer and declined. GBS done. BERTRAND Lloyd documented in this encounter Nursing Notes * Anabella Perry LPN - 06/21/2024 2:45 PM EDT 36w1d GBS today Due for growth next week. documented in this encounter Plan of Treatment Upcoming Encounters Date Type Department Care Team (Late st Contact Info) Description 07/02/2024 9:00 AM EDT Office Visit Gynecology/Obstetrics [facility] [address] [place] [address] Kendra Sánchez CRNP [address] [place] [address] 07/09/2024 3:00 PM EDT Office Visit Gynecology/Obstetrics [facility] [address] [place] [address] Ty Elkins MD [address] [place] [address] 07/15/2024 4:30 PM EDT Office Visit Gynecology/Obstetrics [facility] [address] [place] [address] Jane Mcguire PA-C [address] [place] [address] Pending Results Name Type Priority Associated Diagnoses [...] prior documented in this encounter Care Teams Legal Recovery Specialist Relationship Specialty Start Date End Date February, Mark Liang MD [address] [place] [address] PCP - General Family Medicine 01/18/24 documented as of this encounter
--- OUTSIDE RECORDS SUMMARY | 2024-07-09 03:19 | External Medical Summary | Summary of Care ---
Author Name Unknown Organization [facility] Address [address] [facility] [place] [address] Phone [phone] Care Team Providers Care Motorized Squad Lieutenant Name Role Phone Mark Snow MD Primary Care Provider [phone] Reason for Visit * Reason Comments Outpatient Testing Encounter Details Date Type Department Care Team (Late st Contact Info) Description 05/03/2024 8:20 AM EDT Laboratory Laboratory, [facility] 132 [facility] [place] [id number] [facility] 132 [facility] [place] [address] Abnormal glucose tolerance in mother complicating Allergies [...] 11/21 - passed 3 hr - Adry Sivler CNM ALT (SGPT) level raised 06/25/201804/23 Overview: [...] money to get more. Never true 12/05/2022 [place] Depression Scale Answer Date Recorded [place] Depression Scale Total 1 12/01/2023 The thought [...] 05/14/2024 9:15 AM EDT [facility] [address] [place] [address] Kendra Sánchez CRNP [address] [place] [address] 05/28/2024 1:30 PM EDT [facility] [address] [place] [address] Kendra Sánchez CRNP [address] [place] [address] 06/12/2024 3:00 PM EDT Office Visit Gynecology/Obstetrics [facility]y Mc [address] [place] [address] Ty Elkins MD [address] [place] [address] Pending Results Name Type Priority Associated Diagnoses Date /Time GESTATIONAL GLUCOSE TOLERANCE, 3 HOUR Lab Routine Abnormal glucose tolerance in mother complicating 05/03/2024 8:10 AM EDT 100-G GESTATIONAL GLUCOSE, 3 HOUR Lab Routine Abnormal glucose tolerance in mother complicating 05/03/2024 11:13 AM EDT Health Maintenance Due Date Last Done Comments [...] Date/Time Associated Diagnosis Comments 100-G GESTATIONAL GLUCOSE, 2 HOUR Routine 05/03/2024 10:15 AM EDT Abnormal glucose tolerance in mother complicating 100-G GESTATIONAL GLUCOSE, 1 HOUR Routine 05/03/2024 9:15 AM EDT Abnormal glucose tolerance in mother complicating 100-G GESTATIONAL GLUCOSE, FASTING Routine 05/03/2024 8:10 AM EDT Abnormal glucose tolerance in mother complicating documented in this encounter Results * 100-G GESTATIONAL GLUCOSE, 2 HOUR (05/03/2024 10:15 AM EDT) 100-g Gestational Glucose, 2 Hour 114 70 - 154 mg/dL 05/03/2024 10:59 AM EDT [facility] [place] [facility]10 Blood Venous blood specimen / Unknown Venipuncture / Unknown 05/03/2024 10:15 AM EDT 05/03/2024 10:15 AM EDT Kendra THURSTON LAB BLOOD ORDERABLES [facility] [place] [facility] [facility] [place] [address] * 100-G GESTATIONAL GLUCOSE, 1 HOUR (05/03/2024 9:15 AM EDT) 100-g Gestational Glucose, 1 Hour 161 70 - 179 mg/dL 05/03/2024 10:03 AM EDT [facility] [place] [facility]10 Blood Venous blood specimen / Unknown Venipuncture / Unknown 05/03/2024 9:15 AM EDT 05/03/2024 9:15 AM EDT Kendra THURSTON LAB BLOOD ORDERABLES [facility] [place] [facility] [address] * 100-G GESTATIONAL GLUCOSE, FASTING (05/03/2024 8:10 AM EDT) 100-g Gestational Glucose, Fasting 87 70 - 94 mg/dL 05/03/2024 8:53 AM EDT [facility]10 Blood Venous blood specimen / Unknown Venipuncture / Unknown 05/03/2024 8:10 AM EDT 05/03/2024 8:10 AM EDT Narrative [facility]10 - 05/03/2024 8:53 AM EDT [...] mg/dL Kendra THURSTON LAB BLOOD ORDERABLES [facility] [address] [place] [address] documented in this encounter Visit Diagnoses Diagnosis Abnormal glucose tolerance in mother complicating Abnormal maternal glucose tolerance, complicating , childbirth, or the puerperium, unspecified as to episode of care documented in this encounter Care Teams Motorized Squad Lieutenant Relationship Specialty Start Date End Date February, Mark Liang MD [address] [place] [address] PCP - General Family Medicine 01/18/24 documented as of this encounter
--- OUTSIDE RECORDS SUMMARY | 2024-07-09 03:19 | External Medical Summary | Summary of Care ---
Author Name Unknown Organization [facility] Address [address] [facility] [place] [address] Phone [phone] Care Team Providers Care Crisis Worker Name Role Phone Mark Snow MD Primary Care Provider [phone] Reason for Visit * Reason Comments Return Visit Encounter Details Date Type Department Care Team (Late st Contact Info) Description 06/28/2024 12:00 PM EDT Office Visit Gynecology/Obstetric s [facility] [address] [place] [address] Kendra Sácnhez CRNP [address] [place] [address] Rh negative, antepartum*; Supervision of other normal , antepartum; History of shoulder dystocia in prior Allergies Active Allergy Reactions Criticality Noted Date Comments Benzoyl Peroxide 03/29/2011 documented as of this encounter (statuses as of 06/28/2024) Medications Medication Sig Dispensed Refills Start Date [...] as of this encounter (statuses as of 06/28/2024) Active Problems Problem Noted Date Diagnosed Date Supervision of other normal , antepartu m 12/29/2023 History of shoulder dystocia in prior 12/29/2023 Overview: Shoulder dystocia with first delivery Rh negative, antepartum 04/15/2022 Overview: Estimated Date of Delivery Comme nts Yes 07/18/2024 Based on Ultraso und documented as of this encounter (statuses as of 06/28/2024) Resolved Problems Problem Noted Date Diagnosed Date [...] as of this encounter (statuses as of 06/28/2024) Immunizations Name Administration Dates Next Due COVID-19 [...] money to get more. Never true 05/28/2024 [place] Depression Scale Answer Date Recorded [place] Depression Scale Total 1 05/28/2024 The thought [...] No 05/28/2024 Does the household have a [facility] source of income? (Household - for ages [...] Sign Reading Time Taken Comments Blood Pressure 110/68 06/28/2024 11:41 AM EDT Pulse - - Temperature - - Respiratory Rate - - Oxygen Saturation - - Inhaled Oxygen Concentration - - Weight 79.1 kg (174 lb 6.4 oz) 06/28/2024 11:41 AM EDT Height - - Body Mass Index 25.75 06/21/2024 2:44 PM EDT documented in this encounter Progress Notes * Kendra Sánchez CRNP - 06/28/2024 12:52 PM EDT 37w1d Had growth u/s today, 79th percentile. Is accepting of scheduling c/s d/t history of shoulder dystocia. Will need preop scheduled as well, info to Dahlia to schedule. No other concerns today. We discussed to call in the event of spontaneous labor. Last labor was only about 6 hours. Denies bleeding, LOF. BERTRAND Lloyd * Adia Casey CMA - 06/28/2024 11:41 AM EDT 37w1d ROSA 15.5 Growth 79% Denies concerns documented in this encounter Plan of Treatment Upcoming Encounters Date Type Department Care Team (Late st Contact Info) Description 07/02/2024 9:00 AM EDT Office Visit Gynecology/Obstetrics [facility] [address] [place] [address] Kendra Sánchez CRNP [address] [place] [address] 07/09/2024 3:00 PM EDT Office Visit Gynecology/Obstetrics [facility] [address] [place] [address] Ty Elkins MD [address] [place] [address] 07/15/2024 4:30 PM EDT Office Visit Gynecology/Obstetrics [facility] [address] [place] [address] Jane Mcguire PA-C [address] [place] [address] Health Maintenance Due Date Last Done Comments [...] prior documented in this encounter Care Teams Crisis Worker Relationship Specialty Start Date End Date February, Mark Liang MD [address] [place] [address] PCP - General Family Medicine 01/18/24 documented as of this encounter
--- OUTSIDE RECORDS SUMMARY | 2024-07-09 03:19 | External Medical Summary | Summary of Care ---
Author Name Unknown Organization [facility] Address [address] [facility] [place] [address] Phone [phone] Care Team Providers Care Dry House Worker Name Role Phone Mark Snow MD Primary Care Provider [phone] Reason for Visit * Reason Comments Return Visit Encounter Details Date Type Department Care Team (Late st Contact Info) Description 05/28/2024 1:30 PM EDT Office Visit Gynecology/Obstetric s [facility] [address] [place] [address] Kendra Sánchez CRNP [address] [place] [address] Supervision of other normal , antepartum*; Rh negative, antepartum; History of shoulder dystocia in prior Allergies Active Allergy Reactions Criticality Noted Date Comments Benzoyl Peroxide 03/29/2011 documented as of this encounter (statuses as of 05/28/2024) Medications Medication Sig Dispensed Refills Start Date [...] as of this encounter (statuses as of 05/28/2024) Active Problems Problem Noted Date Diagnosed Date Supervision of other normal , antepartu m 12/29/2023 History of shoulder dystocia in prior 12/29/2023 Overview: Shoulder dystocia with first delivery Rh negative, antepartum 04/15/2022 Overview: Estimated Date of Delivery Comme nts Yes 07/18/2024 Based on Ultraso und documented as of this encounter (statuses as of 05/28/2024) Resolved Problems Problem Noted Date Diagnosed Date [...] as of this encounter (statuses as of 05/28/2024) Immunizations Name Administration Dates Next Due COVID-19 [...] money to get more. Never true 05/28/2024 [place] Depression Scale Answer Date Recorded [place] Depression Scale Total 1 12/01/2023 The thought of harming myself has occurred to me . Never 12/01/2023 Childcare Answer Date Recorded Do you feel [...] No 05/28/2024 Does the [facility] have a [facility]? (Household - for [...] Sign Reading Time Taken Comments Blood Pressure 104/58 05/28/2024 1:34 PM EDT Pulse - - Temperature - - Respiratory Rate - - Oxygen Saturation - - Inhaled Oxygen Concentration - - Weight 76.2 kg (168 lb) 05/28/2024 1:34 PM EDT Height 175.3 cm (5' 9") 05/28/2024 1:34 PM EDT Body Mass Index 24.81 05/28/2024 1:34 PM EDT documented in this encounter Progress Notes * Kendra Sánchez CRNP - 05/28/2024 1:50 PM EDT 32w5d No concerns. Had GI bug last week, feeling better now. Baby is active. No contractions, bleeding, LOF. BERTRAND Lloyd documented in this encounter Nursing Notes * Anabella [place] LPN - 05/28/2024 1:37 PM EDT 32w5d Denies concerns Had stomach flu last week documented in this encounter Plan of Treatment Upcoming Encounters Date Type Department Care Team (Late st Contact Info) Description 06/12/2024 3:00 PM EDT Office Visit Gynecology/Obstetrics [facility] [address] [place] [address] Ty Elkins MD [address] [place] [address] 06/21/2024 2:30 PM EDT Office Visit Gynecology/Obstetrics [facility] [address] [place] [address] Kendra Sánchez CRNP [address] [place] [address] Health Maintenance Due Date Last Done Comments [...] prior documented in this encounter Care Teams Dry House Worker Relationship Specialty Start Date End Date February, Mark Liang MD [address] [place] [address] PCP - General Family Medicine 01/18/24 documented as of this encounter
--- OUTSIDE RECORDS SUMMARY | 2024-07-09 03:20 | External Medical Summary | Summary of Care ---
Author Name Unknown Organization [facility] Address [address] [facility] [address] Phone [phone] Care Team Providers Care Creping Machine Operator Name Role Phone Mark Snow MD Primary Care Provider [phone] Reason for Visit * Reason Comments Return Visit Encounter Details Date Type Department Care Team (Late st Contact Info) Description 04/02/2024 9:00 AM EDT Office Visit Gynecology/Obstetric s [facility] [address] [place] [address] Kendra Sánchez CRNP [address] [place] [address] Supervision of other normal , antepartum*; Rh negative, antepartum; History of shoulder dystocia in prior Allergies Active Allergy Reactions Criticality Noted Date Comments Benzoyl Peroxide 03/29/2011 documented as of this encounter (statuses as of 04/02/2024) Medications Medication Sig Dispensed Refills Start Date [...] as of this encounter (statuses as of 04/02/2024) Active Problems Problem Noted Date Diagnosed Date Supervision of other normal , antepartu m 12/29/2023 History of shoulder dystocia in prior 12/29/2023 Overview: Shoulder dystocia with first delivery Rh negative, antepartum 04/15/2022 Overview: Estimated Date of Delivery Comme nts Yes 07/18/2024 Based on Ultraso und documented as of this encounter (statuses as of 04/02/2024) Resolved Problems Problem Noted Date Diagnosed Date [...] 02/07/2019 Overview: TDAP given 11/14/2018 Tiff Flores, HMUZA Had flu vaccine elsewhere. Encounter for preconception consultation 04/10/2018 06/22/2018 Oral contraceptive use 12/02/201304/10 Routine child health exam 05/15/2002 Other acne 06/22/2018 Overview: sees Dr. Bolden documented as of this encounter (statuses as of 04/02/2024) Immunizations Name Administration Dates Next Due COVID-19 mRNA, LNP-s, No Pre serve, 2-Dose Series (Moderna) 12/04/2020,11/03/2020 DTP/HIB (Tetramune) 06/10/1997,08/16/1993 DTWP - Dipth/Tet/Whole Cell Pertussis 1992 ,1992,1992 HPV Vaccine, 4-Valent 12/24/2008,08/27/2008,05/2008 Haemophilius B (HIB), unspecified 1992,1992,1992,07/13 Hepatitis B Vaccine 1992,1992,1991 Hepatitis B, 0-19 yrs 03/29/2011 MMR - Measles/Mumps/Rubella Vaccine 06/10/1997,1 Meningococcal Conjugate Vacc ine (Menactra/Menveo) 04/29/2008 OPV - Polio Virus Vaccine (Oral) 997,08/16/1993,1992,07/13 PPD 01/31/2024, 1,04/19/2010,04/06 Seasonal Influenza, Quadriva lent, No Preserve, Mdck 07/27/2018 Seasonal Influenza, Split, I IV3, With Preserve, Inj 09/13/2011 TB Barb Test 11/10/1993 TDAP (age 10 and older)(Boostrix) 07/15/2022, TDAP, Age 7 and older, IM (Adacel) [...] money to get more. Never true 12/05/2022 [place] Depression Scale Answer Date Recorded [place] Depression Scale Total 1 12/01/2023 The thought of harming myself has occurred to me . Never 12/01/2023 Estimated Date of Delivery Comme nts Yes [...] Reading Time Taken Comments Blood Pressure 106/62 04/02/2024 9:05 AM EDT Pulse - - Temperature - - Respiratory Rate - - Oxygen Saturation - - Inhaled Oxygen Concentration - - Weight 71.7 kg (158 lb) 04/02/2024 9:05 AM EDT Height 175.3 cm (5' 9") 04/02/2024 9:05 AM EDT Body Mass Index 23.33 04/02/2024 9:05 AM EDT documented in this encounter Progress Notes * Kendra Sánchez CRNP - 04/02/2024 9:13 AM EDT 24w5d No concerns. Baby is active. Denies contractions, bleeding, LOF. Glucola, TDAP with next visit. BERTRAND Lloyd documented in this encounter Nursing Notes * Anabella [place] LPN - 04/02/2024 9:08 AM EDT 24w5d Denies concerns documented in this encounter Plan of Treatment Upcoming Encounters Date Type Department Care Team (Late st Contact Info) Description 04/30/2024 1:30 PM EDT Office Visit Gynecology/Obstetrics [facility] [address] [place] [address] Kendra Sánchez CRNP [address] [place] [address] Scheduled Orders Name Type Priority Associated Diagnoses Orde r Schedule 50-G GESTATIONAL GLUCOSE, 1 HOUR Lab Routine Supervision of other normal , antepartum Expected: 05/02/2024 (Approximate), Expires: 04/02/2025 CBC WITH WBC DIFFERENTIAL AND ANEMIA REFLEX WORKUP Lab Routine Supervision of other normal , antepartum Expected: 05/02/2024 (Approximate), Expires: 04/02/2025 SYPHILIS ANTIBODY SCREEN WITH REFLEX TO RPR Lab Routine Supervision of other normal , antepartum Expected: 05/02/2024 (Approximate), Expires: 04/02/2025 Health Maintenance Due Date Last Done Comments Depression Screening 03/21/2020 03/21/2019 HPV/Co-Test 2022 COVID-19 Vaccine ( season) 2023 12/04/2020, 11/03/2020 Influenza Vaccine (FLU shot) (Season Ended) 2024 07/27/2018, 09/13/2011 Cervical Cancer Screening 02/24/2025 Pap Smear 02/24/2025 02/24/2022, 03/23, 11/25/2014, Additional history exists DTaP,Tdap,and Td Vaccines (9 - Td or Tdap) 07/15/2032 07/15/2022, 11/14/2018, 04/29/2008, Additional history exists MENINGOCOCCAL (MENACTRA/MENVEO) Aged Out 04/29/2008 No longer eligible based on patient's age to complete this topic GARDASIL-HPV IMMUNIZATION SERIES Completed 12/24/2008, 08/27/2008, 04/29/2008 Hepatitis B Completed 03/29/2011, 10/23, 1992, Additional history exists Pneumococcal Vaccine: Pediatrics [...] prior documented in this encounter Care Teams Creping Machine Operator Relationship Specialty Start Date End Date February, Mark Liang MD [address] [place] [address] PCP - General Family Medicine 01/18/24 documented as of this encounter
--- OUTSIDE RECORDS SUMMARY | 2024-07-09 03:20 | External Medical Summary | Summary of Care ---
Author Name Unknown Organization [facility] Address [address] [facility] [place] [address] Phone [phone] Care Team Providers Care Mechanism Assembler Name Role Phone Mark Snow MD Primary Care Provider [phone] Reason for Visit * Reason Comments Outpatient Testing Encounter Details Date Type Department Care Team (Late st Contact Info) Description 04/30/2024 1:00 PM EDT Laboratory Laboratory, [facility] [address] [facility] [id number] [facility] [address] [place] [address] Supervision of other normal , antepartum Allergies Active Allergy Reactions Criticality Noted Date [...] money to get more. Never true 12/05/2022 [place] Depression Scale Answer Date Recorded [place] Depression Scale Total 1 12/01/2023 The thought [...] 05/14/2024 9:15 AM EDT [facility] [address] [place] [address] Kendra Sánchez CRNP [address] [place] [address] 05/28/2024 1:30 PM EDT [facility] [address] [place] [address] Kendra Sánchez CRNP [address] [place] [address] 06/12/2024 3:00 PM EDT Office Visit Gynecology/Obstetrics [facility] [address] [place] [address] Ty Elkins MD [address] [place] [address] Pending Results Name Type Priority Associated Diagnoses Date /Time 50-G GESTATIONAL GLUCOSE, 1 HOUR Lab Routine Supervision of other normal , antepartum 04/30/2024 2:16 PM EDT CBC WITH WBC DIFFERENTIAL AND ANEMIA REFLEX WORKUP Lab Routine Supervision of other normal , antepartum 04/30/2024 2:16 PM EDT SYPHILIS ANTIBODY SCREEN WITH REFLEX TO RPR Lab Routine Supervision of other normal , antepartum 04/30/2024 2:16 PM EDT ANEMIA CBC Lab Routine Supervision of other normal , antepartum 04/30/2024 2:16 PM EDT DIFFERENTIAL, AUTOMATED Lab Routine Supervision of other normal , antepartum 04/30/2024 2:16 PM EDT ANEMIA REFLEX CHEMISTRY HOLD Lab Routine Supervision of other normal , antepartum 04/30/2024 2:16 PM EDT SYPHILIS ANTIBODY SCREEN Lab Routine Supervision of other normal , antepartum 04/30/2024 2:16 PM EDT Health Maintenance Due Date Last Done [...] Diagnoses Diagnosis Supervision of other normal , antepartum documented in this encounter Care Teams Mechanism Assembler Relationship Specialty Start Date End Date February, Mark Liang MD [address] [place] [address] PCP - General Family Medicine 01/18/24 documented as of this encounter
--- OUTSIDE RECORDS SUMMARY | 2024-07-09 03:20 | External Medical Summary | Summary of Care ---
Author Name Unknown Organization [facility] Address [address] [facility] [place] [address] Phone [phone] Care Team Providers Care Chronometer Tester Name Role Phone Mark Snow MD Primary Care Provider [phone] Reason for Visit * Reason Comments Outpatient Testing Encounter Details Date Type Department Care Team (Late st Contact Info) Description 04/30/2024 1:00 PM EDT Laboratory Laboratory, [facility] [phone] [facility] [address] [place] [id number] Arrived Allergies Active Allergy Reactions Criticality Noted Date [...] Inj 09/13/2011 TDAP (age 10 and older)(Boostrix) 07/15/2022, TDAP, [...] money to get more. Never true 12/05/2022 [place] Depression Scale Answer Date Recorded [place] Depression Scale Total 1 12/01/2023 The thought [...] as of this encounter Plan of Treatment Health Maintenance Due Date Last Done Comments [...] filedocumented as of this encounter Care Teams Chronometer Tester Relationship Specialty Start Date End Date February, Mark Liang MD [address] [place] [address] PCP - General Family Medicine 01/18/24 documented as of this encounter
--- OUTSIDE RECORDS SUMMARY | 2024-07-09 03:20 | External Medical Summary ---
Author Name Unknown Address Unknown Organization [id number][place] [facility] [place] [address] [place] [id number] Laboratory Report Ordering Provider Test Date Status CORA LICONA 04/30/2024 14:16:03 Final Observation Date Value Abnormality Reference (Units ) Status Treponema pallidum Ab [Presence] in Serum by Immunoassay 04/30/2024 14:16:03 Nonreactive Nonreactive Final No serologic evidence of syp hilis. No additional testing clinicially indicated at this time. Consider repeat testing in 2-4 weeks if acute or primary syphilis is suspected. Performing Location [place] [facility] [place] [address] [place] [id number]
--- OUTSIDE RECORDS SUMMARY | 2024-07-09 03:20 | External Medical Summary ---
Author Name Unknown Address Unknown Organization [id number]:[facility]ATORY [facility] - [address] [place] [id number] Laboratory Report Ordering Provider Test Date Status VALDO LICONAPATIENCE 04/30/2024 14:16:03 Final Observation Date Value Abnormality Reference (Units ) Status WBC, Total 04/30/2024 14:16:03 10.64 4.00-10.8 0 (K/uL) Final RBC 04/30/2024 14:16:03 4.13 3.85-5.15 (M/uL) Final Hemoglobin 04/30/2024 14:16:03 12.9 12.0-15.3 (g/dL) Final Anemia reflex testing trigge rs on a HGB < 12.0 for Females and HGB < 13.0 for Males in accordance with the WHO Anemia Guidelines
Anemia reflex testing triggers on a HGB < 12.0 for Females and HGB < 13.0 for Males in accordance with the WHO Anemia Guidelines HCT 04/30/2024 14:16:03 37.9 36.0-45.2 (%) Final MCV 04/30/2024 14:16:03 91.8 81.5-97.5 (fL) Final MCH 04/30/2024 14:16:03 31.2 27.0-34.0 (pg) Final MCHC 04/30/2024 14:16:03 34.0 32.0-36.0 (g/dL) Final RDW 04/30/2024 14:16:03 13.8 11.5-15.5 (%) Final Platelets 04/30/2024 14:16:03 155 140-400 (K /uL) Final MPV 04/30/2024 14:16:03 11.5 6.6-11.1 ( fL) Final Nucleated erythrocytes/100 leukocytes [Ratio] in Blood by Automated count 04/30/2024 14:16:03 0 <=0 (/100 WBCs) [facility] Performing Location [facility] - [address] [facility] [address]
--- OUTSIDE RECORDS SUMMARY | 2024-07-09 03:20 | External Medical Summary ---
Author Name Unknown Address Unknown Organization [id number]:[place] [facility] [place] [address] [facility] [place] [address] Laboratory Report Ordering Provider Test Date Status CORA LICONA 04/30/2024 14:16:03 Final Observation Date Value Abnormality Reference (Units ) Status SYNC LEUKOCYTES IN BLOOD BY AUTOMATED COUNT 04/30/2024 14:16:03 10.64 4.00-10.80 (K/uL) Final Segs 04/30/2024 14:16:03 84.7 Above high normal 40.0-75.0 (%) Final Lymphs % 04/30/2024 14:16:03 11.1 Below low normal 18.0-42.0 (%) Final Monos 04/30/2024 14:16:03 3.4 1.0-11.0 (%) Final Eosinophils 04/30/2024 14:16:03 0.3 0.0-6.0 (%) Final Basos 04/30/2024 14:16:03 0.2 0.0-2.0 (%) Final Immature Granulocyte, Percent 04/30/2024 14:16:03 0.3 0.0-2.0 (%) Final Absolute Segs 04/30/2024 14:16:03 9.02 Above high normal 1.80-7.70 (K/uL) Final Lymphs, absolute 04/30/2024 14:16:03 1.18 1.00-4.80 (K/ul) Final Monos, Abs 04/30/2024 14:16:03 0.36 0.00-1.10 (K/uL) Final Eos, Abs 04/30/2024 14:16:03 0.03 0.00-0.70 (K/uL) Final Basos, Abs 04/30/2024 14:16:03 0.02 0.00-0.20 (K/uL) Final Immature Granulocytes, Number 04/30/2024 14:16:03 0.03 0.00-0.20 (K/uL) Final Performing Location [facility] [place] [facility] [address] [facility] [address]
--- OUTSIDE RECORDS SUMMARY | 2024-07-09 03:20 | External Medical Summary ---
Author Name Unknown Address Unknown Organization K0G:[facility]ATORY [facility] - [address] [place] [address] Laboratory Report Ordering Provider Test Date Status CORA LICONA 04/30/2024 14:16:03 Final Observation Date Value Abnormality Reference (Units ) Status Glucose [Moles/volume] in Serum or Plasma --1 hour post 50 g glucose PO 04/30/2024 14:16:03 147 Above high normal 70-129 (mg/dL) Final Performing Location LABORATORY [facility] - [address] [place] [address]
--- OUTSIDE RECORDS SUMMARY | 2024-07-09 03:20 | External Medical Summary | Summary of Care ---
Author Name Unknown Organization [facility] Address [address] [facility] [place] [address] Phone [phone] Care Team Providers Care Financial Report Service Sales Agent Name Role Phone Mark Snow MD Primary Care Provider [phone] Reason for Visit * Reason Comments Return Visit Encounter Details Date Type Department Care Team (Late st Contact Info) Description 04/02/2024 9:00 AM EDT Office Visit Gynecology/Obstetric s [facility] [address] [place] [address] Kendra Sánchez CRNP [address] [place] [address] Supervision of other normal , antepartum*; Rh [...] money to get more. Never true 12/05/2022 [place] Depression Scale Answer Date Recorded [place] Depression Scale Total 1 12/01/2023 The thought [...] [facility] [address] [place] [address] Kendra Sánchez CRNP [address] [place] [address] Scheduled Orders Name Type Priority Associated Diagnoses [...] prior documented in this encounter Care Teams Financial Report Service Sales Agent Relationship Specialty Start Date End Date February, Mark Liang MD [address] [place] [address] PCP - General Family Medicine 01/18/24 documented as of this encounter
--- OUTSIDE RECORDS SUMMARY | 2024-07-09 03:20 | External Medical Summary | Summary of Care ---
Author Name Unknown Organization [facility] Address [address] [facility] [facility] [address] Phone [phone] Care Team Providers Care Circulation Crew Leader Name Role Phone Mark Snow MD Primary Care Provider [phone] Encounter Details Date Type Department Care Team (Late st Contact Info) Description 03/07/2024 Telephone Gynecology/Obstetrics [facility] [address] [facility] [place] [address] Sarah Martinez PA-C [address] [facility] [place] [address] Allergies Active Allergy Reactions Criticality Noted Date Comments Benzoyl Peroxide 03/29/2011 documented as of this encounter (statuses as of 03/11/2024) Medications Medication Sig Dispensed Refills Start Date [...] as of this encounter (statuses as of 03/11/2024) Active Problems Problem Noted Date Diagnosed Date Supervision of other normal , antepartu m 12/29/2023 History of shoulder dystocia in prior 12/29/2023 Overview: Shoulder dystocia with first delivery Rh negative, antepartum 04/15/2022 Overview: Estimated Date of Delivery Comme nts Yes 07/18/2024 Based on Ultraso und documented as of this encounter (statuses as of 03/11/2024) Resolved Problems Problem Noted Date Diagnosed Date [...] as of this encounter (statuses as of 03/11/2024) Immunizations Name Administration Dates Next Due COVID-19 mRNA, LNP-s, No Pre serve, 2-Dose Series (Moderna) 12/04/2020,11/03/2020 HPV Vaccine, 4-Valent 12/24/2008,08/27/2008,07/0 05/2008 Hepatitis B, 0-19 yrs 03/29/2011 Meningococcal Conjugate Vacc ine (Menactra/Menveo) 04/29/2008 PPD 01/31/2024, 1,04/19/2010,04/06 Seasonal Influenza, Quadriva lent, No Preserve, Mdck 07/27/2018 Seasonal Influenza, Split, I IV3, With Preserve, Inj 09/13/2011 TDAP (age 10 and older)(Boostrix) 07/15/2022, TDAP (age 11 and older)(Adacel) 04/29/2008 Varicella Vaccine (Chicken Pox) 05/07/2010,04/08 documented [...] money to get more. Never true 12/05/2022 [place] Depression Scale Answer Date Recorded [place] Depression Scale Total 1 12/01/2023 The thought [...] Telephone Encounter - Cate Steele LPN - 03/07/2024 10:30 AM EDT ----- Message from Sarah Martinez PA-C sent at 03/07/2024 10:02 AM EDT ----- Please let patient know her anatomy scan has been reviewed and it was WNL. Heart rate was 140 beatsper minute. Growth and fluid levels were normal. Thanks! Sarah Martinez PA-C documented in this encounter Plan of Treatment Upcoming Encounters Date Type Department Care Team (Late st Contact Info) Description 04/02/2024 9:00 AM EDT Office Visit Gynecology/Obstetrics [facility] [address] [place] [address] Kendra Sánchez CRNP [address] [place] [address] 04/30/2024 1:30 PM EDT Office Visit Gynecology/Obstetrics [facility] [address] [place] [address] Kendra Sánchez CRNP [address] [place] [address] Health Maintenance Due Date Last Done Comments Depression Screening 03/21/2020 03/21/2019 HPV/Co-Test 2022 COVID-19 Vaccine (2022- season) 2023 12/04/2020, 11/03/2020 Influenza Vaccine (FLU [...] filedocumented as of this encounter Care Teams Circulation Crew Leader Relationship Specialty Start Date End Date February, Mark Liang MD [address] [place] [address] PCP - General Family Medicine 01/18/24 documented as of this encounter
--- OUTSIDE RECORDS SUMMARY | 2024-07-09 03:20 | External Medical Summary | Summary of Care ---
Author Name Unknown Organization [facility] Address [address] [facility] [place] [address] Phone [phone] Care Team Providers Care Apprentice Painter Neckties Name Role Phone Mark Snow MD Primary Care Provider [phone] Reason for Visit * Reason Comments Return Visit Encounter Details Date Type Department Care Team (Late st Contact Info) Description 03/06/2024 3:15 PM EDT Office Visit Gynecology/Obstetric s [facility] [address] [place] [address] Kendra Sánchez CRNP [address] [place] [address] Supervision of other normal , antepartum*; Rh negative, antepartum; History of shoulder dystocia in prior Allergies Active Allergy Reactions Criticality Noted Date Comments Benzoyl Peroxide 03/29/2011 documented as of this encounter (statuses as of 03/06/2024) Medications Medication Sig Dispensed Refills Start Date End Date Status Vit-Fe Fumarate-FA ( FORMULA) 28-0.8 MG TABS Take by mouth. 0 Active DHA 200 MG Oral Capsule (docosahexaenoic Acid) Take 1 Capsule by mouth in the morning. 0 Active metroNIDAZOLE 1 % External Gel (Metrogel)Indications :Perioral dermatitis Apply topically to affected area 2 times a day. To affected area. 60 g 11 01/31/2024 Active documented as of this encounter (statuses as of 03/06/2024) Active Problems Problem Noted Date Diagnosed Date Supervision of other normal , antepartu m 12/29/2023 History of shoulder dystocia in prior 12/29/2023 Overview: Shoulder dystocia with first delivery Rh negative, antepartum 04/15/2022 Overview: Estimated Date of Delivery Comme nts Yes 07/18/2024 Based on Ultraso und documented as of this encounter (statuses as of 03/06/2024) Resolved Problems Problem Noted Date Diagnosed Date [...] as of this encounter (statuses as of 03/06/2024) Immunizations Name Administration Dates Next Due COVID-19 [...] money to get more. Never true 12/05/2022 [place] Depression Scale Answer Date Recorded [place] Depression Scale Total 1 12/01/2023 The thought [...] Sign Reading Time Taken Comments Blood Pressure 98/60 03/06/2024 3:13 PM EDT Pulse - - Temperature - - Respiratory Rate - - Oxygen Saturation - - Inhaled Oxygen Concentration - - Weight - - Height 175.3 cm (5' 9") 03/06/2024 3:13 PM EDT Body Mass Index - - documented in this encounter Progress Notes * Kendra Sánchez CRNP - 03/06/2024 3:15 PM EDT 20w6d Complaints: none Feeling well overall. +FM. No contractions, bleeding, or LOF. Anatomy u/s today, report pending. BERTRAND Lloyd * Cherelle Mejia LPN - 03/06/2024 3:13 PM EDT 20w6d Anatomy today documented in this encounter Plan of Treatment Upcoming Encounters Date Type Department Care Team (Late st Contact Info) Description 04/02/2024 9:00 AM EDT Office Visit Gynecology/Obstetrics [facility] [address] [place] [address] Kendra Sánchez CRNP [address] [place] [address] 04/30/2024 1:30 PM EDT Office Visit Gynecology/Obstetrics [facility] [address] [place] [address] Kendra Sánchez CRNP [address] [place] [address] Health Maintenance Due Date Last Done Comments [...] prior documented in this encounter Care Teams Apprentice Painter Neckties Relationship Specialty Start Date End Date February, Mark Liang MD [address] [place] [address] PCP - General Family Medicine 01/18/24 documented as of this encounter
--- OUTSIDE RECORDS SUMMARY | 2024-07-09 03:21 | External Medical Summary | Summary of Care ---
Author Name Unknown Organization [facility] Address [address] [facility] [place] [address] Phone [phone] Care Team Providers Care Clerical Production Worker Name Role Phone Mark Snow MD Primary Care Provider [phone] Reason for Visit * Reason Onset Date Comments Physical-Exam TB test as well Does have dermatitis and would like to get the metronidazole cream PPD Skin Test 01/31/2024 Encounter Details Date Type Department Care Team (Late st Contact Info) Description 01/31/2024 3:40 PM EDT Office Visit [facility] [address] [facility] [place] [address] Mark Snow MD [address] [place] [address] Screening-pulmonary TB*; Perioral dermatitis; Physical exam, pre-employment Allergies Active Allergy Reactions Criticality Noted Date Comments Benzoyl Peroxide 03/29/2011 documented as of this encounter (statuses as of 01/31/2024) Medications Medication Sig Dispensed Refills Start Date [...] as of this encounter (statuses as of 01/31/2024) Active Problems Problem Noted Date Diagnosed Date Supervision of other normal , antepartu m 12/29/2023 History of shoulder dystocia in prior 12/29/2023 Overview: Shoulder dystocia with first delivery Rh negative, antepartum 04/15/2022 Overview: Estimated Date of Delivery Comme nts Yes 07/18/2024 Based on Ultraso und documented as of this encounter (statuses as of 01/31/2024) Resolved Problems Problem Noted Date Diagnosed Date [...] as of this encounter (statuses as of 01/31/2024) Immunizations Name Administration Dates Next Due COVID-19 [...] Date Smoking Tobacco: Never Smokeless Tobacco: Never Tobacco Cessation:Counseling Given: Not Answered Alcohol Use Standard Drinks/Week Comments No 0 [...] money to get more. Never true 12/05/2022 [place] Depression Scale Answer Date Recorded [place] Depression Scale Total 1 12/01/2023 The thought [...] Sign Reading Time Taken Comments Blood Pressure 100/62 01/31/2024 3:41 PM EDT Pulse 88 01/31/2024 3:41 PM EDT Temperature 36.5 C (97.7 F) 01/31/2024 3:41 PM ED T Respiratory Rate 18 01/31/2024 3:41 PM EDT Oxygen Saturation 100% 01/31/2024 3:41 PM EDT Inhaled Oxygen Concentration - - Weight 66.2 kg (146 lb) 01/31/2024 3:41 PM EDT Height 175.3 cm (5' 9") 01/31/2024 3:41 PM EDT Body Mass Index 21.56 01/31/2024 3:41 PM EDT documented in this encounter Patient Instructions * Patient Instructions* Brandi Dorsey LPN - 01/31/2024 3:49 PM EDT PATIENT INSTRUCTIONS FOR TUBERCULOSIS TESTING Also known as: Purified Protein Derivative (PPD) Whether you have active TB disease or simply test positive for TB infection, you must see a healthcare professional for evaluation and treatment. Tuberculosis (TB) is a disease that spreads through the air. It can cause serious health problems. TB is on the rise. To protect your health, get tested. Who Should Be Tested? Anyone can be exposed to TB. However, certain people are at higher risk for exposure, especially healthcare professionals, the homeless, and people coming from countries with high TB rates. People whose bodies are less able to fight off infections, such as the elderly and people with HIV and AIDS, are also more likely to get TB. If youre at risk for exposure, get tested regularly. The TB Skin Test The TB skin test tells you if the tuberculosis bacteria are in your body. Your healthcare professional places a small amount of solution under the skin with a needle to see if a reaction occurs. Keepin mind that although many people are infected with TB, very few develop TB disease. Getting Your TB Test Results Within 2-3 days after the test, youll be asked to return to your healthcare professional. Be sure to keep this appointment. Your test results will be evaluated during this visit. In some cases, a second test may be done to confirm results. What Do the Test Results Mean? Negative results mean you likely dont have the TB bacteria in your body. Positive results mean that you may have been infected with the TB bacteria. This doesnt necessarily mean you have active TB disease. More tests, such as chest x-rays, are needed to find out if youhave TB disease. [id number] [facility], [address] [place] [address], [place] [address]. All rights reserved. This information is not intended as a substitute for professional medical care. Always follow your healthcare professional's instructions. documented in this encounter Progress Notes * Mark Snow MD - 01/31/2024 3:58 PM EDT Images from the original note were not included. Assessment and Plan 1. Perioral dermatitis - metroNIDAZOLE 1 % External Gel (Metrogel); Apply topically to affected area 2 times a day. To affected area. Dispense: 60 g; Refill: 11 2. Screening-pulmonary TB - PPD 3. Physical exam, pre-employment Wrap-Up Follow up as needed. History of Present Illness The patient is a 33 year old female who presents for follow up. 33-year-old female who presents for pre-employment physical and to discuss perioral dermatitis. Shewas currently 16 weeks with her 3rd boy. She has follow up with OBGYN scheduled in a couple of days. She brings to forms to be completed. 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 PPD was placed today. She has perioral dermatitis as she did during prior pregnancies. This was treated with metronidazole. She was requesting another script. Patient otherwise feels well. Takes no other medications other than vitamins. Physical Exam Vitals: 01/31/24 1541 Temp: 36.5 C (97.7 F) Pulse: 88 Resp: 18 SpO2: 100% BP: 100/62 BMI: 21.55 Physical Exam Physical Exam Vitals reviewed. Constitutional: General: She is not in acute distress. HENT: Right Ear: Tympanic membrane normal. There is no impacted cerumen. Left Ear: Tympanic membrane normal. There is no impacted cerumen. Nose: No congestion or rhinorrhea. Eyes: General: No scleral icterus. Pupils: Pupils are equal, round, and reactive to light. Cardiovascular: Rate and Rhythm: Normal rate and regular rhythm. Heart sounds: No murmur heard. Pulmonary: Effort: Pulmonary effort is normal. No respiratory distress. Breath sounds: Normal breath sounds. No wheezing. Abdominal: General: There is no distension. Palpations: Abdomen is soft. Tenderness: There is no abdominal tenderness. Musculoskeletal: Cervical back: Neck supple. Lymphadenopathy: Cervical: No cervical adenopathy. Skin: General: Skin is warm and dry. Findings: No rash. Neurological: General: No focal deficit present. Mental Status: She is alert. This note has been completed in part utilizing [employer] Speech Voice Recognition Software. Due to technical limitations of the software, grammatical errors, random word insertions, prounoun errors, and incomplete sentences may occur. Any formal questions or concerns about the content, text, or information contained within the body of this dictation should be directly addressed to the provider for clarification. * Brandi Dorsey LPN - 01/31/2024 3:46 PM EDT Pt here for PPD administration. Has patient ever had a positive PPD Screening Test? No Has patient ever had the BCG tuberculosis vaccine? No If the patient responds yes to any of the questions, they are NOT eligible for a PPD. DO NOT administer the PPD Screening Test and Notify the provider. Time Out Procedure Performed: Yes Patient Identified (Ask Name/Date of ): Yes Immunization(s) verified: Yes, Immunization Name: PPD, VIS Sheet(s) given: Yes Verified Side and Site: Yes Verified Shot(s) with Parent(s)/Patient: Yes PPD applied at 3:46 PM and patient tolerated well. Patient to return to clinic in 48 hours for PPD Reading. documented in this encounter Nursing Notes * Brandi Dorsey LPN - 01/31/2024 3:45 PM EDT The patient has been properly identified by confirmation of name and date of . Chief Complaint Patient presents with Physical-Exam TB test as well Does have dermatitis and would like to get the metronidazole cream documented in this encounter Plan of Treatment Upcoming Encounters Date Type Department Care Team (Late st Contact Info) Description 02/02/2024 4:15 PM EDT Office Visit Gynecology/Obstetrics [facility] [address] [place] [address] Sarah Martinez PA-C [address] [place] [address] [place] [address] 03/06/2024 2:15 PM EDT Imaging Radiology [facility] 2nd Floor, [place] [address] [place] [address] 03/06/2024 3:15 PM EDT Office Visit Gynecology/Obstetrics [facility] [address] [place] [address] Kendra Sánchez CRNP [address] [place] [address] Health Maintenance Due Date Last Done Comments [...] as of this encounter Visit Diagnoses Diagnosis Screening-pulmonary TB- Primary Screening examination for pulmonary tuberculosis Perioral dermatitis Rosacea Physical exam, pre-employment Health examination of defined subpopulation documented in this encounter Care Teams Clerical Production Worker Relationship Specialty Start Date End Date February, Mark Liang MD [address] [place] [address] PCP - General Family Medicine 01/18/24 documented as of this encounter
--- OUTSIDE RECORDS SUMMARY | 2024-07-09 03:21 | External Medical Summary | Summary of Care ---
Author Name Unknown Organization [facility] Address [address] [facility] [place] [address] Phone [phone] Care Team Providers Care Field Service Specialist Name Role Phone Mark Snow MD Primary Care Provider [phone] Reason for Visit * Reason Onset Date Comments New Visit 11/08/2023 Encounter Details Date Type Department Care Team (Late st Contact Info) Description 11/08/2023 Telephone Gynecology/Obstetrics [facility] [address] [place] [address] Jane Mcguire PA-C [address] [place] [address] New Visit Allergies Active Allergy Reactions Criticality Noted Date Comments Benzoyl Peroxide 03/29/2011 documented as of this encounter (statuses as of 02/07/2024) Medications Medication Sig Dispensed Refills Start Date End Date Status Vit-Fe Fumarate-FA ( FORMULA) 28-0.8 MG TABS Take by mouth. 0 Active DHA 200 MG Oral Capsule (docosahexaenoic Acid) Take 1 Capsule by mouth in the morning. 0 Active documented as of this encounter (statuses as of 02/07/2024) Active Problems Problem Noted Date Diagnosed Date Supervision of other normal , antepartu m 12/29/2023 History of shoulder dystocia in prior 12/29/2023 Overview: Shoulder dystocia with first delivery Rh negative, antepartum 04/15/2022 Overview: documented as of this encounter (statuses as of 02/07/2024) Resolved Problems Problem Noted Date Diagnosed Date [...] as of this encounter (statuses as of 02/07/2024) Immunizations Name Administration Dates Next Due COVID-19 mRNA, LNP-s, No Pre serve, 2-Dose Series (Moderna) 12/04/2020,11/03/2020 HPV Vaccine, 4-Valent 12/24/2008,08/27/2008,07/0 05/2008 Hepatitis B, 0-19 yrs 03/29/2011 Meningococcal Conjugate Vacc ine (Menactra/Menveo) 04/29/2008 PPD 03/29/2011,04/19/2010,04/06/2010 Seasonal Influenza, Quadriva lent, No Preserve, Mdck [...] money to get more. Never true 12/05/2022 [place] Depression Scale Answer Date Recorded [place] Depression Scale Total 1 12/01/2023 The thought of harming myself has occurred to me . Never 12/01/2023 Sex and Gender Information Value Date Recorded Sex Assigned at Female 02/24/2022 4:00 PM EDT Gender Identity Female 02/24/2022 4:00 PM EDT Sexual Orientation Straight 02/24/2022 4: 00 PM EDT Job Start Date Occupation Industry Not on file Not on file Not on file documented as of this encounter Miscellaneous Notes * Telephone Encounter - Jane Mcguire PA-C - 11/08/2023 3:40 PM EST Order placed for dating ultrasound. Routing back to scheduling in case order needs to be associatedwith appointment. * Telephone Encounter - Maria Teresa Gonzalez RN - 11/08/2023 1:58 PM EST Order pended. * Telephone Encounter - Dahlia Shrestha OSA - 11/08/2023 1:43 PM EST Pt was blinded to me to schedule nurse intake, new and dating US appts. Her last period started 10/03. Scheduled 12/01 should put her around 8+ weeks. Needs order for dating US placed. documented in this encounter Plan of Treatment Upcoming Encounters Date Type Department Care Team (Late st Contact Info) Description 03/06/2024 2:00 PM EDT Imaging Radiology [facility] 2nd Floor, [place] [address] [place] [address] 03/06/2024 3:15 PM EDT Office Visit Gynecology/Obstetrics [facility] [address] [place] [address] Kendra Sánchez CRNP [address] [place] [address] 04/02/2024 9:00 AM EDT Office Visit Gynecology/Obstetrics [facility] [address] [place] [address] Kendra Sánchez CRNP [address] [place] [address] Health Maintenance Due Date Last Done Comments [...] Not on filedocumented as of this encounter Results * US PELVIS TRANS-VAGINAL OB (12/01/2023 1:18 PM EST) Anatomical Region Laterality Modality Pelvis, Body Ultrasound 12/01/2023 2:13 PM EST Impressions 12/01/2023 2:10 PM EST IMPRESSION Single live intrauterine gestation with LINDA of 07/18/2024. Narrative 12/01/2023 2:10 PM EST EXAM US PELVIS TRANS-VAGINAL OB - 12/01/2023 1:18 pm HISTORY dating COMPARISON None TECHNIQUE Real time transvaginal sonographic imaging of the pelvis was performed. FINDINGS CURRENT GESTATIONAL AGE: This is the initial exam. CROWN RUMP LENGTH: 10.8 mm equivalent to 7w 1d. LINDA (CRL): 07/18/2024 HEART RATE: 153 bpm YOLK SAC: Seen MYOMETRIUM: Unremarkable RIGHT OVARY: 4.2 cm x 2.4 cm x 4.6 cm, 24.6 ml. Corpus luteum LEFT OVARY: 2.3 cm x 1.4 cm x 3.5 cm, 5.7 ml. Unremarkable MISCELLANEOUS: No significant free fluid. Procedure Note Maciej Asencio MD - 12/01/2023 EXAM US PELVIS TRANS-VAGINAL OB - 12/01/2023 1:18 pm HISTORY dating COMPARISON None TECHNIQUE Real time transvaginal sonographic imaging of the pelvis was performed. FINDINGS CURRENT GESTATIONAL AGE: This is the initial exam. CROWN RUMP LENGTH: 10.8 mm equivalent to 7w 1d. LINDA (CRL): 07/18/2024 HEART RATE: 153 bpm YOLK SAC: Seen MYOMETRIUM: Unremarkable RIGHT OVARY: 4.2 cm x 2.4 cm x 4.6 cm, 24.6 ml. Corpus luteum LEFT OVARY: 2.3 cm x 1.4 cm x 3.5 cm, 5.7 ml. Unremarkable MISCELLANEOUS: No significant free fluid. IMPRESSION IMPRESSION Single live intrauterine gestation with LINDA of 07/18/2024. Jane Mcguire PA-C RAD ULTRASOUND documented in this encounter Visit Diagnoses Diagnosis Early stage of - Primary Early stage of documented in this encounter Care Teams Field Service Specialist Relationship Specialty Start Date End Date February, Mark Liang MD [address] [place] [address] PCP - General Family Medicine 01/18/24 documented as of this encounter
--- OUTSIDE RECORDS SUMMARY | 2024-07-09 03:21 | External Medical Summary | Summary of Care ---
Author Name Unknown Organization [facility] [address] [place] [address] Phone [phone] Care Team Providers Care Waiter/Waitress Buffet Name Role Phone Mark Snow MD Primary Care Provider [phone] Reason for Visit * Reason Onset Date Comments Order Request 02/19/2024 Encounter Details Date Type Department Care Team (Late st Contact Info) Description 02/19/2024 Telephone Radiology, [facility] [address] [place] [address] Requisition, External Radiology [address] [place] [address] Order Request Allergies Active Allergy Reactions Criticality Noted Date Comments Benzoyl Peroxide 03/29/2011 documented as of this encounter (statuses as of 02/19/2024) Medications Medication Sig Dispensed Refills Start Date [...] as of this encounter (statuses as of 02/19/2024) Active Problems Problem Noted Date Diagnosed Date Supervision of other normal , antepartu m 12/29/2023 History of shoulder dystocia in prior 12/29/2023 Overview: Shoulder dystocia with first delivery Rh negative, antepartum 04/15/2022 Overview: Estimated Date of Delivery Comme nts Yes 07/18/2024 Based on Ultraso und documented as of this encounter (statuses as of 02/19/2024) Resolved Problems Problem Noted Date Diagnosed Date [...] as of this encounter (statuses as of 02/19/2024) Immunizations Name Administration Dates Next Due COVID-19 [...] money to get more. Never true 12/05/2022 [place] Depression Scale Answer Date Recorded [place] Depression Scale Total 1 12/01/2023 The thought [...] encounter Miscellaneous Notes * Telephone Encounter - Sarah Martinez PA-C - 02/19/2024 1:30 PM EDT U/S order placed. Thanks! Sarah Martinez PA-C * Telephone Encounter - Stacey Zeng OSA - 02/19/2024 11:[address] US PREG SINGLE/1ST GEST, 14 WEEKS OR LATER order. Thank you. documented in this encounter Plan of Treatment Upcoming Encounters Date Type Department Care Team (Late st Contact Info) Description 03/06/2024 2:00 PM EDT Imaging Radiology [facility] 2nd Floor, [place] [address] [place] [address] 03/06/2024 3:15 PM EDT Office Visit Gynecology/Obstetrics [facility] [address] [place] [address] Kendra Sánchez CRNP [address] [place] [address] 04/02/2024 9:00 AM EDT Office Visit Gynecology/Obstetrics [facility] [address] [place] [address] Kendra Sánchez CRNP [address] [place] [address] Scheduled Orders Name Type Priority Associated Diagnoses Orde r Schedule US PREG SINGLE/1ST GEST, 14 WEEKS OR LATER Medical Imaging Routine Supervision of other normal , antepartum Expected: 03/04/2024 (Approximate), Expires: 03/20/2025 Health Maintenance Due Date Last Done Comments [...] Supervision of other normal , antepartum- Primary documented in this encounter Care Teams Waiter/Waitress Buffet Relationship Specialty Start Date End Date February, Mark Liang MD [address] [place] [address] PCP - General Family Medicine 01/18/24 documented as of this encounter
--- OUTSIDE RECORDS SUMMARY | 2024-07-09 03:21 | External Medical Summary | Summary of Care ---
Author Name Unknown Organization [facility] Address [address] [facility] [address] [address] [place] [address] Phone [phone] Care Team Providers Care Cold Mill Operator Name Role Phone Mark Snow MD Primary Care Provider [phone] Reason for Visit * Reason Comments Return Visit Encounter Details Date Type Department Care Team (Late st Contact Info) Description 02/02/2024 4:15 PM EDT Office Visit Gynecology/Obstetric s [facility] [address] [facility] [place] [address] Sarah Martinez PA-C [address] [facility] [place] [address] Supervision of other normal , antepartum*; History of shoulder dystocia in prior ; Rh negative, antepartum Allergies Active Allergy Reactions Criticality Noted Date Comments Benzoyl Peroxide 03/29/2011 documented as of this encounter (statuses as of 02/02/2024) Medications Medication Sig Dispensed Refills Start Date [...] as of this encounter (statuses as of 02/02/2024) Active Problems Problem Noted Date Diagnosed Date Supervision of other normal , antepartu m 12/29/2023 History of shoulder dystocia in prior 12/29/2023 Overview: Shoulder dystocia with first delivery Rh negative, antepartum 04/15/2022 Overview: Estimated Date of Delivery Comme nts Yes 07/18/2024 Based on Ultraso und documented as of this encounter (statuses as of 02/02/2024) Resolved Problems Problem Noted Date Diagnosed Date [...] as of this encounter (statuses as of 02/02/2024) Immunizations Name Administration Dates Next Due COVID-19 [...] money to get more. Never true 12/05/2022 [place] Depression Scale Answer Date Recorded [place] Depression Scale Total 1 12/01/2023 The thought [...] Reading Time Taken Comments Blood Pressure 102/60 02/02/2024 4:22 PM EDT Pulse - - Temperature - - Respiratory Rate - - Oxygen Saturation - - Inhaled Oxygen Concentration - - Weight 65.8 kg (145 lb) 02/02/2024 4:22 PM EDT Height - - Body Mass Index 21.41 01/31/2024 3:41 PM EDT documented in this encounter Progress Notes * Sarah Martinez PA-C - 02/02/2024 4:26 PM EDT Dilcia Argueta is a 33 year old female here for her routine OB appointment at 16w1d Her Estimated Date of Delivery: 07/18/24 Reporting intermittent headaches that she feels is related to not drinking enough water. Tylenol helps when she takes it. No associated vision changes. No concerns at this time. REVIEW OF SYSTEMS She denies movement. She has no concerns at this time. Denies vaginal bleeding, LOF, contractions, N/V, vision changes, chest pain. PHYSICAL EXAM Filed Vitals: 02/02/24 1622 BP: 102/60 Weight: 65.8 kg (145 lb) +FHT 140s ASSESSMENT/PLAN Supervision of other normal , antepartum (Primary) History of shoulder dystocia in prior Rh negative, antepartum Supervision of - anatomy u/s due in 4 weeks. Patient scheduled 03/06. - discussed MSAFP and role in detecting open neural tube defects. Patient declines at this time. RTO in 4 weeks for BEVERLEY Martinez PA-C 02/02/2024 * Antoinette Roach LPN - 02/02/2024 4:19 PM EDT 16w1d Denies vaginal bleeding/rom Absent movement No new concerns documented in this encounter Plan of Treatment Upcoming Encounters Date Type Department Care Team (Late st Contact Info) Description 03/06/2024 2:00 PM EDT Imaging Radiology [facility] 2nd Floor, [place] [address] [place] [address] 03/06/2024 3:15 PM EDT Office Visit Gynecology/Obstetrics [facility] [address] [place] [address] Kendra Sánchez CRNP [address] [place] [address] 04/02/2024 9:00 AM EDT Office Visit Gynecology/Obstetrics [facility] [address] [place] [address] Kendra Sánchez CRNP [address] [place] [address] Health Maintenance Due Date Last Done Comments [...] Supervision of other normal , antepartum- Primary History of shoulder dystocia in prior Rh negative, antepartum Rhesus isoimmunization affecting management of mother, antepartum condition documented in this encounter Care Teams Cold Mill Operator Relationship Specialty Start Date End Date February, Mark Liang MD [address] [place] [address] PCP - General Family Medicine 01/18/24 documented as of this encounter
[2024-07-09] MEDS: KETOROLAC 30 MG/ML VIAL IV PRN (05:49)
[2024-07-09 06:22] LABS: Basophils # (auto) 0.02 K/uL (0.00-0.20); Basophils % (auto) 0.2 %; Eosinophils # (auto) 0.02 K/uL (0.00-0.50); Eosinophils % (auto) 0.2 %; Hematocrit (blood only) 36.2 % (37.0-47.0); Hemoglobin 12.3 g/dl (12.0-16.0); Immature Granulocytes # (auto) 0.02 K/uL (0.01-0.20); Immature Granulocytes % (auto) 0.2 %; Lymphocytes # (auto) 1.31 K/uL (1.20-3.40); Lymphocytes % (auto) 14.7 %; Mean Corpuscular Hemoglobin 29.9 pg (25.0-34.0); Mean Corpuscular Volume 87.9 fL (80.0-100.0); Mean Platelet Volume 11.9 fL (9.4-12.4); Monocytes # (auto) 0.34 K/uL (0.11-0.59); Monocytes % (auto) 3.8 %; Neutrophils # (auto) 7.23 K/uL (1.40-6.50); Neutrophils % (auto) 80.9 %; Platelet Count 119 K/uL (130-400); RDW Coefficient of Variation 13.5 % (11.5-14.5); RDW Standard Deviation 43.1 fL (36.4-46.3); Red Blood Count 4.12 M/uL (4.20-5.40); White Blood Count 8.94 K/ul (4.8-10.8)
[2024-07-09] MEDS: PRENATAL VITAMIN 1 TAB PO SCH (07:56)
[2024-07-09] MEDS: FERROUS SULFATE 325 MG TAB PO SCH (07:57)
[2024-07-09] MEDS: DOCUSATE SODIUM 100 MG CAP PO SCH (07:57)
[2024-07-09] MEDS: SIMETHICONE 80 MG CHEW PO SCH (07:57)
[2024-07-09] MEDS ORDERED: diphenhydrAMINE Capsule 25 MG CAP PO PRN (14:37)
[2024-07-09] MEDS ORDERED: oxyCODONE HCL IR 5 MG TAB (IMMEDIATE RELEASE) PO PRN (14:37)
[2024-07-09] MEDS ORDERED: HYDROmorphone INJ 0.5 MG/0.5 ML SYR IV PRN (14:37)
[2024-07-09] MEDS ORDERED: PROMETHAZINE 12.5 MG/50.5 ML BAG IV PRN (14:37)
[2024-07-09] MEDS ORDERED: ONDANSETRON INJ 2 MG/ML 2 ML VIAL IV PRN (14:37)
[2024-07-09] MEDS ORDERED: diphenhydrAMINE 50 MG/ML VIAL IV PRN (14:37)
[2024-07-09] MEDS: bisacodyL 5 MG TABEC PO SCH (20:30)
[2024-07-10 06:59] LABS: Hematocrit (blood only) 33.2 % (37.0-47.0); Hemoglobin 11.1 g/dl (12.0-16.0)
--- NOTE | 2024-07-10 08:40 | Obstetrical Progress Note ---
Date of Service July 10, 2024 Subjective Ambulation: ambulating normally Voiding: no voiding problems Passing Gas:: Yes Diet Tolerance:: regular diet Lochia:: Small Feeding Type:: breast feeding Current Pain Level(1-10): 3 doing well. wants to go home today Physical Exam Constitutional WD/WN, vitals as above Gastrointestinal (Abdomen) Inspection/Auscultation: abdomen normal to inspection incision c/d/i abdomen soft and non-tender fundus firm Musculoskeletal Extremities: extremities normal to inspection Skin no rashes, warm and dry Neurologic patellar DTR's 2+ bilat, sensation intact Psychiatric A+Ox3, euthymic affect Genitourinary no vaginal lesions, no adnexal mass Results & Data Vital Signs (Past 12 Hours) Vital Signs Temp Pulse Resp BP Pulse Ox O2 Del Method 07/10/24 00:12 36.7 C 88 18 99/61 L 97 Room Air
[2024-07-10 09:11] VITALS: O2SAT 98
[2024-07-10 10:29] VITALS: RESP 16; TEMP 97.9
[2024-07-10 11:40] VITALS: BP 118/78; PULSE 87
[2024-07-10] MEDS ORDERED: bisacodyL 10 MG SUPP PR PRN (22:07)
[2024-07-11] MEDS ORDERED: ACETAMINOPHEN 325 MG TAB PO PRN
[2024-07-11] MEDS ORDERED: IBUPROFEN 600 MG TAB PO PRN
== END 2024-07-10 13:54 | disposition home or self-care (01) | DRG 788 ==
LOC: OPB 18:48 → 4S1 18:57 → 4E2 07-09 00:55
DX: Z3A.38 38 weeks gestation of pregnancy; Z37.0 Single live birth; O69.81X0 Labor and delivery complicated by cord around neck, without compression, not applicable or unspecified; Z88.8 Allergy status to other drugs, medicaments and biological substances; O32.2XX0 Maternal care for transverse and oblique lie, not applicable or unspecified